=== PATIENT | female | born 1980 | race Caucasian/White ===

== ENCOUNTER 2020-02-08 14:44 | Emergency (ER) | payer OTHER, SELFPAY ==
[2020-02-08 14:51] VITALS: BP 125/76; PULSE 113; RESP 20; TEMP 37.1; O2SAT 99; BMI 24.1
--- NOTE | 2020-02-08 15:24 | XRR_ITS ---
PROCEDURE INFORMATION: Exam: XR Chest, 1 View Exam date and time: 02/08/2020 3:25 PM Age: 39 years old Clinical indication: Shortness of breath; Additional info: SOB TECHNIQUE: Imaging protocol: XR of the chest Views: 1 view. COMPARISON: No relevant prior studies available. FINDINGS: Lungs: Unremarkable. No consolidation. Pleural space: Unremarkable. No pleural effusion. No pneumothorax. Heart/Mediastinum: Unremarkable. No cardiomegaly. Vasculature: There are incidental benign calcified granulomas versus vessels seen en face at the perihilar regions. Bones/joints: Unremarkable. XR/XR chest 1V portable [id number] IMPRESSION: No evidence for acute cardiopulmonary disease.
--- NOTE | 2020-02-08 15:30 | ECG_ITS ---
[facility] Test Date: 2020-02-08 Pat Name: Anel Esparza Department: Room: Gender: Female Project Buyer: : [id number] Requested By: Majo Moon Order Number: [id number] Bianca MD: Lashanda Choudhary M.D. Measurements Intervals [place] Rate: 100 P: 69 MD: 137 QRS: 76 QRSD: 85 T: 49 QT: 343 QTc: 444 Interpretive Statements SINUS TACHYCARDIA POSSIBLE LEFT ATRIAL ENLARGEMENT [-0.1mV P WAVE IN V1/V2] ABNORMAL RHYTHM ECG No previous ECG available for comparison Electronically Signed On 02-08-2020 18:15:05 CDT by Lashanda Choudhary M.D. [id number]
--- NOTE | 2020-02-08 15:33 | W.ED.SOB ---
Documented by User: Majo Moon DAREN Lewis 02/08/20 16:49 HPI - SOB/Dyspnea General: Chief Complaint: Shortness of Breath/Dyspnea Stated Complaint: sob, cough Time Seen by Provider: 02/08/20 14:54 History of Present Illness: HPI Narrative: 39-year-old female patient presents to the emergency department with her spouse. 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 She reports past 1 to 2-week history of shortness of breath, worse with exertion. Reports iron deficiency anemia, states hemoglobin was 10 Sunday when checked by OB. She denies cough, denies fever or chills, denies ill contacts. She reports dizziness with shortness of breath, episodes have increased in frequency and last approximately 30 seconds to 1 minute. Improves with rest. She reports sharp pain in her chest. Denies bilateral lower extremity edema or unilateral swelling of the legs. Reports near syncopal episodes that have occurred several times, she reports has to put herself on the floor to prevent the falling feeling. She reports the room will shift, causing her to feel she is going to lose her balance. L 4 Miss AB 1 - 4th with twin - missd ab of 1 at 12 weeks Associated symptoms: Reports chest pain, lightheadedness and nausea (Past 1 to 2 weeks); Deny abdominal pain, chest congestion, diaphoresis, fever(s), hemoptysis, palpitations or vomiting Review of Systems General: Reports: 10 or more systems reviewed and unremarkable except in HPI and below Const: Denies: fever(s), chills or diaphoresis Eyes: Denies: blurry vision or eye redness ENMT: Denies: throat pain, dental pain or disequilibrium Card: Reports: chest pain, lightheadedness and dyspnea on exertion; Denies: palpitations, irregular heart rhythm, edema, swelling of feet/ankles or acrocyanosis Resp: Reports: dyspnea; Denies: productive cough, non-productive cough, wheezing, hemoptysis or chest congestion GI: Reports: nausea (Past 1 to 2 weeks); Denies: abdominal pain, vomiting, heartburn or GI cramping : Reports: other (31 weeks IUP, heart tones 141 bpm, strong and steady); Denies: difficulty voiding, dysuria, vaginal bleeding or vaginal discharge Musc: Denies: back pain Skin/Breast: Denies: rash or pruritus Neuro: Denies: headache(s), weakness in extremities or behavioral changes Zac/Lymph: Denies: easy bruising Physical Exam Const: COMMON NORMALS: no acute distress, patient oriented x3, healthy appearing and alert GENERAL APPEARANCE: cooperative, comfortable and well hydrated HENMT: COMMON NORMALS: normocephalic, external ears normal, TM's normal bilaterally, Normal external nose present and moist oral mucous membranes HEAD & SCALP: normocephalic NOSE: Normal external nose present EXTERNAL EAR: Yes external ears normal TYMPANIC MEMBRANE: TM's normal bilaterally MOUTH: Normal oral and palatal mucosa present THROAT: posterior oropharynx normal Eye: COMMON NORMALS: Equal, round and reactive pupils present and EOMs intact bilaterally GENERAL EYE: appearance normal, both eyes and all related structures PUPIL: Yes Equal, round and reactive pupils present, Yes pupil size - right Right pupil size (mm): 5 and Yes pupil size - left Left pupil size (mm): 5 Neck/C-Spine: COMMON NORMALS: full ROM, no lymphadenopathy and no meningeal signs GENERAL: Yes normal visual inspection and Yes trachea midline CERVICAL SPINE: Yes cervical ROM normal Lymph: LYMPHATIC: no lymphadenopathy noted Chest: COMMONS NORMALS: normal inspection of the chest Resp: COMMON NORMALS: normal respiratory effort and clear to auscultation bilaterally AUSCULTATION: clear to auscultation bilaterally Cardio: COMMON NORMALS: regular rhythm, S1 normal heart sound present and S2 normal heart sound present RHYTHM: regular rhythm HEART SOUNDS: S1 normal heart sound present and S2 normal heart sound present GI: COMMON NORMALS: Soft to palpation and non-tender INSPECTION: Yes normal to inspection PALPATION: Yes Soft to palpation : COMMON NORMALS: Yes no CVA tenderness BLADDER/KIDNEY EXAM: Yes no CVA tenderness Back/Pelvis: COMMON NORMALS: no CVA tenderness and thoracic and lumbar spine normal to inspection Extremity: COMMON NORMALS: normal to inspection and capillary refill normal Neuro: [place] COMA SCALE: document GCS findings [place] coma scale eye opening: Spontaneous [place] coma scale verbal response: Orientated [place] coma scale motor response: Obey commands [place] coma scale total score: 15 COMMON NORMALS: patient oriented x3, moves all extremities and no focal motor deficits SENSORIUM/ORIENTATION: Yes alert MENINGEAL SIGNS: Yes no meningeal signs COORDINATION/BALANCE: [id number] test normal SPEECH: speech normal GAIT: Yes Normal gait present MOTOR EXAM: 5/5 motor strength present throughout, Pronator motor function not present, no tremor noted, Normal motor muscle tone present throughout, No Motor abnormalities not present and No Pronator motor function present COORDINATION: [id number] test normal Psych: COMMON NORMALS: mental status grossly normal, Normal thought process present and cooperative ACTIVITY/MOTOR BEHAVIOR: Yes appropriate eye contact THOUGHT PROCESS: Normal thought process present Skin: COMMON NORMALS: no rashes or lesions noted and turgor normal GENERAL SKIN EXAM: no rashes or lesions noted and turgor normal Course ED course: Case discussed with Dr. Acosta, Labor and Delivery presented to the emergency department for 20-minute evaluation/stress test, no abnormal variation detected. Vital Signs: Vital signs: Vital Signs Temperature 97.6 F 02/09/20 10:21 Pulse Rate 78 02/09/20 10:21 Respiratory Rate 18 02/09/20 10:21 Blood Pressure 97/49 02/09/20 10:21 Pulse Oximetry 98 02/09/20 10:21 MDM - SOB/Dyspnea Lab Data: Labs: Lab Results 02/08/20 02/08/20 02/08/20 Range/Units 15:30 15:30 15:30 WBC 9.2 (4.0-10.0) 10^3/ uL RBC 4.01 L (4.1-5.3) 10^6/u L Hgb 11.4 L (11.5-15.3) g/dL Hct 36.6 L (37.0-47.0) % MCV 91.3 (81-99) fL MCH 28.4 (28.0-34.0) pg MCHC 31.1 (30.0-36.0) g/dL RDW 15.4 H (12.1-15.1) % Plt Count 300 (130-400) 10^3/c mm MPV 10.5 H (7.4-10.4) fL Neut % (Auto) 72.6 % Lymph % (Auto) 17.8 % [place] % (Auto) 7.5 % Eos % (Auto) 0.2 % Baso % (Auto) 0.4 % Neut # (Auto) 6.70 (1.8-7.7) 10^3/u L Lymph # (Auto) 1.6 (0.8-4.8) 10^3/u L [place] # (Auto) 0.7 (0.2-0.9) 10^3/u L Eos # (Auto) 0.0 (0.0-0.8) 10^3/u L Baso # (Auto) 0.0 (0.0-0.1) 10^3/u L Nucleated RBC % (a uto) 0 % Nucleated RBCs # 0.0 /100WBC D-Dimer 0.63 H (0-0.59) ug/mIFE U Sodium 134 L (136-145) mmol/L Potassium 3.8 (3.5-5.1) mmol/L Chloride 105 (98-107) mmol/L Carbon Dioxide 21 L (22-29) mmol/L Anion Gap 11.8 (5-19) BUN 7 (6-20) mg/dL Creatinine 0.4 L (0.5-0.9) mg/dL GFR Calculation 175.9 H (90-130) mL/min Glucose 82 (65-115) mg/dL Calculated Osmolal ity 273 L (285-295) mOsm/k g Calcium 8.9 (8.5-10.5) mg/dL Total Bilirubin 0.3 (0.15-1.2) mg/dL AST 25 (0-32) U/L ALT 10 (0-33) U/L Alkaline Phosphata se 70 (35-105) IU/L Troponin T Baselin e (0-10) ng/L Troponin T 120 Min [place] (0-10) ng/L Delta Troponin T (0-10) ABS# Troponin T Hi Sens 6Hr (0-10) ng/L Troponin T Hi Sens 6Hr Delta (0-12) ng/L NT-Pro-B Natriuret Pep (0-125) pg/mL Total Protein 6.7 (6.6-8.7) g/dL Albumin 3.4 L (3.5-5.2) g/dL Globulin 3.3 (1.3-4.6) g/dL Urine Color (Yellow) Urine Appearance (CLEAR) Urine pH (5-7) Ur Specific Gravit y (1.005-1.030) Urine Protein (Negative) Urine Glucose (UA) (Normal) Urine Ketones (Negative) Urine Blood (Negative) Urine Nitrate (Negative) Urine Bilirubin (NEGATIVE) Prot Sulfosalicyli c Acd (Negative) Urine Urobilinogen (Negative) mg/dL Ur Leukocyte Jeana ase (Negative) 02/08/20 02/08/20 02/08/20 Range/Units 15:30 16:03 19:46 WBC (4.0-10.0) 10^3/ uL RBC (4.1-5.3) 10^6/u L Hgb (11.5-15.3) g/dL Hct (37.0-47.0) % MCV (81-99) fL MCH (28.0-34.0) pg MCHC (30.0-36.0) g/dL RDW (12.1-15.1) % Plt Count (130-400) 10^3/c mm MPV (7.4-10.4) fL Neut % (Auto) % Lymph % (Auto) % [place] % (Auto) % Eos % (Auto) % Baso % (Auto) % Neut # (Auto) (1.8-7.7) 10^3/u L Lymph # (Auto) (0.8-4.8) 10^3/u L [place] # (Auto) (0.2-0.9) 10^3/u L Eos # (Auto) (0.0-0.8) 10^3/u L Baso # (Auto) (0.0-0.1) 10^3/u L Nucleated RBC % (a uto) % Nucleated RBCs # /100WBC D-Dimer (0-0.59) ug/mIFE U Sodium (136-145) mmol/L Potassium (3.5-5.1) mmol/L Chloride (98-107) mmol/L Carbon Dioxide (22-29) mmol/L Anion Gap (5-19) BUN (6-20) mg/dL Creatinine (0.5-0.9) mg/dL GFR Calculation (90-130) mL/min Glucose (65-115) mg/dL Calculated Osmolal ity (285-295) mOsm/k g Calcium (8.5-10.5) mg/dL Total Bilirubin (0.15-1.2) mg/dL AST (0-32) U/L ALT (0-33) U/L Alkaline Phosphata se (35-105) IU/L Troponin T Baselin e 6 (0-10) ng/L Troponin T 120 Min [place] (0-10) ng/L Delta Troponin T (0-10) ABS# Troponin T Hi Sens 6Hr (0-10) ng/L Troponin T Hi Sens 6Hr Delta (0-12) ng/L NT-Pro-B Natriuret Pep 50 (0-125) pg/mL Total Protein (6.6-8.7) g/dL Albumin (3.5-5.2) g/dL Globulin (1.3-4.6) g/dL Urine Color Straw (Yellow) Urine Appearance Clear (CLEAR) Urine pH 8 H (5-7) Ur Specific Gravit y 1.015 (1.005-1.030) Urine Protein Neg (Negative) Urine Glucose (UA) Norm (Normal) Urine Ketones Negative (Negative) Urine Blood Neg (Negative) Urine Nitrate Negative (Negative) Urine Bilirubin Neg (NEGATIVE) Prot Sulfosalicyli c Acd Negative (Negative) Urine Urobilinogen Norm (Negative) mg/dL Ur Leukocyte Jeana ase Negative (Negative) 02/08/20 02/09/20 Range/Units 21:28 01:25 WBC (4.0-10.0) 10^3/ uL RBC (4.1-5.3) 10^6/u L Hgb (11.5-15.3) g/dL Hct (37.0-47.0) % MCV (81-99) fL MCH (28.0-34.0) pg MCHC (30.0-36.0) g/dL RDW (12.1-15.1) % Plt Count (130-400) 10^3/c mm MPV (7.4-10.4) fL Neut % (Auto) % Lymph % (Auto) % [place] % (Auto) % Eos % (Auto) % Baso % (Auto) % Neut # (Auto) (1.8-7.7) 10^3/u L Lymph # (Auto) (0.8-4.8) 10^3/u L [place] # (Auto) (0.2-0.9) 10^3/u L Eos # (Auto) (0.0-0.8) 10^3/u L Baso # (Auto) (0.0-0.1) 10^3/u L Nucleated RBC % (a uto) % Nucleated RBCs # /100WBC D-Dimer (0-0.59) ug/mIFE U Sodium (136-145) mmol/L Potassium (3.5-5.1) mmol/L Chloride (98-107) mmol/L Carbon Dioxide (22-29) mmol/L Anion Gap (5-19) BUN (6-20) mg/dL Creatinine (0.5-0.9) mg/dL GFR Calculation (90-130) mL/min Glucose (65-115) mg/dL Calculated Osmolal ity (285-295) mOsm/k g Calcium (8.5-10.5) mg/dL Total Bilirubin (0.15-1.2) mg/dL AST (0-32) U/L ALT (0-33) U/L Alkaline Phosphata se (35-105) IU/L Troponin T Baselin e (0-10) ng/L Troponin T 120 Min [place] 6.00 (0-10) ng/L Delta Troponin T 0 (0-10) ABS# Troponin T Hi Sens 6Hr 6.00 (0-10) ng/L Troponin T Hi Sens 6Hr Delta 0 (0-12) ng/L NT-Pro-B Natriuret Pep (0-125) pg/mL Total Protein (6.6-8.7) g/dL Albumin (3.5-5.2) g/dL Globulin (1.3-4.6) g/dL Urine Color (Yellow) Urine Appearance (CLEAR) Urine pH (5-7) Ur Specific Gravit y (1.005-1.030) Urine Protein (Negative) Urine Glucose (UA) (Normal) Urine Ketones (Negative) Urine Blood (Negative) Urine Nitrate (Negative) Urine Bilirubin (NEGATIVE) Prot Sulfosalicyli c Acd (Negative) Urine Urobilinogen (Negative) mg/dL Ur Leukocyte Jeana ase (Negative) Imaging Data^: CXR: Attestation: I personally reviewed and interpreted this imaging study as follows: Radiologist's impression: No acute disease EKG Data^: EKG 1: EKG Interpretation Date: 02/08/20 EKG interpretation time: 15:47 Prior EKG tracings: not available for review Computer Generated Interpretation: Sinus tachycardia, possible left atrial enlargement, abnormal rhythm EKG Discharge Plan Discharge Patient Disposition: Xfer Short-Term Hosp Clinical Impression: Tachycardia, SVT (supraventricular tachycardia) Condition: Stable Discharge Orders: Transfer Out of Facility (Order); Ordered 02/08/20 Ordered By: Nola Acosta Referrals: Courtney Hope FNP [Primary Care Provider] - Discharge Date/Time: 02/09/20 10:25 Sign Out Sign Out Data: Patient Sign Out occurred on 02/08/20 at 17:20. Patient's care was discussed, and care was transferred from DAREN Galvan to JANICE Cain. Sign Out Comment: pending V/Q scan Last updated by Majo Lewis ARNP at 02/08/20 17:11 Patient Sign Out occurred on 02/08/20 at 18:55. Patient's care was discussed, and care was transferred from to Nola Acosta MD, [facility] [place]. Coding Level of Care Code ED Investigator Welfare for Chg Fwd Exam Comprehensive Documented by User: JANICE Cain 02/08/20 18:55 HPI - SOB/Dyspnea General: Chief Complaint: Shortness of Breath/Dyspnea Stated Complaint: sob, cough Time Seen by Provider: 02/08/20 14:54 Course Vital Signs: Vital signs: Vital Signs Temperature 97.6 F 02/09/20 10:21 Pulse Rate 78 02/09/20 10:21 Respiratory Rate 18 02/09/20 10:21 Blood Pressure 97/49 02/09/20 10:21 Pulse Oximetry 98 02/09/20 10:21 MDM - SOB/Dyspnea MDM Narrative: Medical decision making narrative: I took over patient for Majo Lewis NP at 5 PM. Patient was waiting on doing V/Q perfusion scan. While waiting on the perfusion scan patient went into SVT and Dr. Acosta will now be taking over care of patient. Patient was signed off to Dr. Acosta. Lab Data: Labs: Lab Results 02/08/20 02/08/20 02/08/20 Range/Units 15:30 15:30 15:30 WBC 9.2 (4.0-10.0) 10^3/ uL RBC 4.01 L (4.1-5.3) 10^6/u L Hgb 11.4 L (11.5-15.3) g/dL Hct 36.6 L (37.0-47.0) % MCV 91.3 (81-99) fL MCH 28.4 (28.0-34.0) pg MCHC 31.1 (30.0-36.0) g/dL RDW 15.4 H (12.1-15.1) % Plt Count 300 (130-400) 10^3/c mm MPV 10.5 H (7.4-10.4) fL Neut % (Auto) 72.6 % Lymph % (Auto) 17.8 % [place] % (Auto) 7.5 % Eos % (Auto) 0.2 % Baso % (Auto) 0.4 % Neut # (Auto) 6.70 (1.8-7.7) 10^3/u L Lymph # (Auto) 1.6 (0.8-4.8) 10^3/u L [place] # (Auto) 0.7 (0.2-0.9) 10^3/u L Eos # (Auto) 0.0 (0.0-0.8) 10^3/u L Baso # (Auto) 0.0 (0.0-0.1) 10^3/u L Nucleated RBC % (a uto) 0 % Nucleated RBCs # 0.0 /100WBC D-Dimer 0.63 H (0-0.59) ug/mIFE U Sodium 134 L (136-145) mmol/L Potassium 3.8 (3.5-5.1) mmol/L Chloride 105 (98-107) mmol/L Carbon Dioxide 21 L (22-29) mmol/L Anion Gap 11.8 (5-19) BUN 7 (6-20) mg/dL Creatinine 0.4 L (0.5-0.9) mg/dL GFR Calculation 175.9 H (90-130) mL/min Glucose 82 (65-115) mg/dL Calculated Osmolal ity 273 L (285-295) mOsm/k g Calcium 8.9 (8.5-10.5) mg/dL Total Bilirubin 0.3 (0.15-1.2) mg/dL AST 25 (0-32) U/L ALT 10 (0-33) U/L Alkaline Phosphata se 70 (35-105) IU/L Troponin T Baselin e (0-10) ng/L Troponin T 120 Min [place] (0-10) ng/L Delta Troponin T (0-10) ABS# Troponin T Hi Sens 6Hr (0-10) ng/L Troponin T Hi Sens 6Hr Delta (0-12) ng/L NT-Pro-B Natriuret Pep (0-125) pg/mL Total Protein 6.7 (6.6-8.7) g/dL Albumin 3.4 L (3.5-5.2) g/dL Globulin 3.3 (1.3-4.6) g/dL Urine Color (Yellow) Urine Appearance (CLEAR) Urine pH (5-7) Ur Specific Gravit y (1.005-1.030) Urine Protein (Negative) Urine Glucose (UA) (Normal) Urine Ketones (Negative) Urine Blood (Negative) Urine Nitrate (Negative) Urine Bilirubin (NEGATIVE) Prot Sulfosalicyli c Acd (Negative) Urine Urobilinogen (Negative) mg/dL Ur Leukocyte Jeana ase (Negative) 02/08/20 02/08/20 02/08/20 Range/Units 15:30 16:03 19:46 WBC (4.0-10.0) 10^3/ uL RBC (4.1-5.3) 10^6/u L Hgb (11.5-15.3) g/dL Hct (37.0-47.0) % MCV (81-99) fL MCH (28.0-34.0) pg MCHC (30.0-36.0) g/dL RDW (12.1-15.1) % Plt Count (130-400) 10^3/c mm MPV (7.4-10.4) fL Neut % (Auto) % Lymph % (Auto) % [place] % (Auto) % Eos % (Auto) % Baso % (Auto) % Neut # (Auto) (1.8-7.7) 10^3/u L Lymph # (Auto) (0.8-4.8) 10^3/u L [place] # (Auto) (0.2-0.9) 10^3/u L Eos # (Auto) (0.0-0.8) 10^3/u L Baso # (Auto) (0.0-0.1) 10^3/u L Nucleated RBC % (a uto) % Nucleated RBCs # /100WBC D-Dimer (0-0.59) ug/mIFE U Sodium (136-145) mmol/L Potassium (3.5-5.1) mmol/L Chloride (98-107) mmol/L Carbon Dioxide (22-29) mmol/L Anion Gap (5-19) BUN (6-20) mg/dL Creatinine (0.5-0.9) mg/dL GFR Calculation (90-130) mL/min Glucose (65-115) mg/dL Calculated Osmolal ity (285-295) mOsm/k g Calcium (8.5-10.5) mg/dL Total Bilirubin (0.15-1.2) mg/dL AST (0-32) U/L ALT (0-33) U/L Alkaline Phosphata se (35-105) IU/L Troponin T Baselin e 6 (0-10) ng/L Troponin T 120 Min [place] (0-10) ng/L Delta Troponin T (0-10) ABS# Troponin T Hi Sens 6Hr (0-10) ng/L Troponin T Hi Sens 6Hr Delta (0-12) ng/L NT-Pro-B Natriuret Pep 50 (0-125) pg/mL Total Protein (6.6-8.7) g/dL Albumin (3.5-5.2) g/dL Globulin (1.3-4.6) g/dL Urine Color Straw (Yellow) Urine Appearance Clear (CLEAR) Urine pH 8 H (5-7) Ur Specific Gravit y 1.015 (1.005-1.030) Urine Protein Neg (Negative) Urine Glucose (UA) Norm (Normal) Urine Ketones Negative (Negative) Urine Blood Neg (Negative) Urine Nitrate Negative (Negative) Urine Bilirubin Neg (NEGATIVE) Prot Sulfosalicyli c Acd Negative (Negative) Urine Urobilinogen Norm (Negative) mg/dL Ur Leukocyte Jeana ase Negative (Negative) 02/08/20 02/09/20 Range/Units 21:28 01:25 WBC (4.0-10.0) 10^3/ uL RBC (4.1-5.3) 10^6/u L Hgb (11.5-15.3) g/dL Hct (37.0-47.0) % MCV (81-99) fL MCH (28.0-34.0) pg MCHC (30.0-36.0) g/dL RDW (12.1-15.1) % Plt Count (130-400) 10^3/c mm MPV (7.4-10.4) fL Neut % (Auto) % Lymph % (Auto) % [place] % (Auto) % Eos % (Auto) % Baso % (Auto) % Neut # (Auto) (1.8-7.7) 10^3/u L Lymph # (Auto) (0.8-4.8) 10^3/u L [place] # (Auto) (0.2-0.9) 10^3/u L Eos # (Auto) (0.0-0.8) 10^3/u L Baso # (Auto) (0.0-0.1) 10^3/u L Nucleated RBC % (a uto) % Nucleated RBCs # /100WBC D-Dimer (0-0.59) ug/mIFE U Sodium (136-145) mmol/L Potassium (3.5-5.1) mmol/L Chloride (98-107) mmol/L Carbon Dioxide (22-29) mmol/L Anion Gap (5-19) BUN (6-20) mg/dL Creatinine (0.5-0.9) mg/dL GFR Calculation (90-130) mL/min Glucose (65-115) mg/dL Calculated Osmolal ity (285-295) mOsm/k g Calcium (8.5-10.5) mg/dL Total Bilirubin (0.15-1.2) mg/dL AST (0-32) U/L ALT (0-33) U/L Alkaline Phosphata se (35-105) IU/L Troponin T Baselin e (0-10) ng/L Troponin T 120 Min [place] 6.00 (0-10) ng/L Delta Troponin T 0 (0-10) ABS# Troponin T Hi Sens 6Hr 6.00 (0-10) ng/L Troponin T Hi Sens 6Hr Delta 0 (0-12) ng/L NT-Pro-B Natriuret Pep (0-125) pg/mL Total Protein (6.6-8.7) g/dL Albumin (3.5-5.2) g/dL Globulin (1.3-4.6) g/dL Urine Color (Yellow) Urine Appearance (CLEAR) Urine pH (5-7) Ur Specific Gravit y (1.005-1.030) Urine Protein (Negative) Urine Glucose (UA) (Normal) Urine Ketones (Negative) Urine Blood (Negative) Urine Nitrate (Negative) Urine Bilirubin (NEGATIVE) Prot Sulfosalicyli c Acd (Negative) Urine Urobilinogen (Negative) mg/dL Ur Leukocyte Jeana ase (Negative) Discharge Plan Discharge Patient Disposition: Xfer Short-Term Hosp Clinical Impression: Tachycardia, SVT (supraventricular tachycardia) Condition: Stable Discharge Orders: Transfer Out of Facility (Order); Ordered 02/08/20 Ordered By: Nola Acosta Referrals: Courtney Hope FNP [Primary Care Provider] - Discharge Date/Time: 02/09/20 10:25 Sign Out Sign Out Data: Patient Sign Out occurred on 02/08/20 at 17:20. Patient's care was discussed, and care was transferred from DAREN Galvan to JANICE Cain. Sign Out Comment: pending V/Q scan Last updated by Majo Lewis ARNP at 02/08/20 17:11 Patient Sign Out occurred on 02/08/20 at 18:55. Patient's care was discussed, and care was transferred from to Nola Acosta MD, [facility] [place]. Coding Level of Care Code ED Investigator Welfare for Chg Fwd Exam Comprehensive Documented by User: Nola Acosta MD, [facility] [place] 02/09/20 15:11 HPI - SOB/Dyspnea General: Chief Complaint: Shortness of Breath/Dyspnea Stated Complaint: sob, cough Time Seen by Provider: 02/08/20 14:54 Course Vital Signs: Vital signs: Vital Signs Temperature 97.6 F 02/09/20 10:21 Pulse Rate 78 02/09/20 10:21 Respiratory Rate 18 02/09/20 10:21 Blood Pressure 97/49 02/09/20 10:21 Pulse Oximetry 98 02/09/20 10:21 MDM - SOB/Dyspnea MDM Narrative: Medical decision making narrative: This patient was initially seen by Majo Lewis, nurse practitioner and she signed it over to Navdeep Carney, when she left Lab Data: Labs: Lab Results 02/08/20 02/08/20 02/08/20 Range/Units 15:30 15:30 15:30 WBC 9.2 (4.0-10.0) 10^3/ uL RBC 4.01 L (4.1-5.3) 10^6/u L Hgb 11.4 L (11.5-15.3) g/dL Hct 36.6 L (37.0-47.0) % MCV 91.3 (81-99) fL MCH 28.4 (28.0-34.0) pg MCHC 31.1 (30.0-36.0) g/dL RDW 15.4 H (12.1-15.1) % Plt Count 300 (130-400) 10^3/c mm MPV 10.5 H (7.4-10.4) fL Neut % (Auto) 72.6 % Lymph % (Auto) 17.8 % [place] % (Auto) 7.5 % Eos % (Auto) 0.2 % Baso % (Auto) 0.4 % Neut # (Auto) 6.70 (1.8-7.7) 10^3/u L Lymph # (Auto) 1.6 (0.8-4.8) 10^3/u L [place] # (Auto) 0.7 (0.2-0.9) 10^3/u L Eos # (Auto) 0.0 (0.0-0.8) 10^3/u L Baso # (Auto) 0.0 (0.0-0.1) 10^3/u L Nucleated RBC % (a uto) 0 % Nucleated RBCs # 0.0 /100WBC D-Dimer 0.63 H (0-0.59) ug/mIFE U Sodium 134 L (136-145) mmol/L Potassium 3.8 (3.5-5.1) mmol/L Chloride 105 (98-107) mmol/L Carbon Dioxide 21 L (22-29) mmol/L Anion Gap 11.8 (5-19) BUN 7 (6-20) mg/dL Creatinine 0.4 L (0.5-0.9) mg/dL GFR Calculation 175.9 H (90-130) mL/min Glucose 82 (65-115) mg/dL Calculated Osmolal ity 273 L (285-295) mOsm/k g Calcium 8.9 (8.5-10.5) mg/dL Total Bilirubin 0.3 (0.15-1.2) mg/dL AST 25 (0-32) U/L ALT 10 (0-33) U/L Alkaline Phosphata se 70 (35-105) IU/L Troponin T Baselin e (0-10) ng/L Troponin T 120 Min [place] (0-10) ng/L Delta Troponin T (0-10) ABS# Troponin T Hi Sens 6Hr (0-10) ng/L Troponin T Hi Sens 6Hr Delta (0-12) ng/L NT-Pro-B Natriuret Pep (0-125) pg/mL Total Protein 6.7 (6.6-8.7) g/dL Albumin 3.4 L (3.5-5.2) g/dL Globulin 3.3 (1.3-4.6) g/dL Urine Color (Yellow) Urine Appearance (CLEAR) Urine pH (5-7) Ur Specific Gravit y (1.005-1.030) Urine Protein (Negative) Urine Glucose (UA) (Normal) Urine Ketones (Negative) Urine Blood (Negative) Urine Nitrate (Negative) Urine Bilirubin (NEGATIVE) Prot Sulfosalicyli c Acd (Negative) Urine Urobilinogen (Negative) mg/dL Ur Leukocyte Jeana ase (Negative) 02/08/20 02/08/20 02/08/20 Range/Units 15:30 16:03 19:46 WBC (4.0-10.0) 10^3/ uL RBC (4.1-5.3) 10^6/u L Hgb (11.5-15.3) g/dL Hct (37.0-47.0) % MCV (81-99) fL MCH (28.0-34.0) pg MCHC (30.0-36.0) g/dL RDW (12.1-15.1) % Plt Count (130-400) 10^3/c mm MPV (7.4-10.4) fL Neut % (Auto) % Lymph % (Auto) % [place] % (Auto) % Eos % (Auto) % Baso % (Auto) % Neut # (Auto) (1.8-7.7) 10^3/u L Lymph # (Auto) (0.8-4.8) 10^3/u L [place] # (Auto) (0.2-0.9) 10^3/u L Eos # (Auto) (0.0-0.8) 10^3/u L Baso # (Auto) (0.0-0.1) 10^3/u L Nucleated RBC % (a uto) % Nucleated RBCs # /100WBC D-Dimer (0-0.59) ug/mIFE U Sodium (136-145) mmol/L Potassium (3.5-5.1) mmol/L Chloride (98-107) mmol/L Carbon Dioxide (22-29) mmol/L Anion Gap (5-19) BUN (6-20) mg/dL Creatinine (0.5-0.9) mg/dL GFR Calculation (90-130) mL/min Glucose (65-115) mg/dL Calculated Osmolal ity (285-295) mOsm/k g Calcium (8.5-10.5) mg/dL Total Bilirubin (0.15-1.2) mg/dL AST (0-32) U/L ALT (0-33) U/L Alkaline Phosphata se (35-105) IU/L Troponin T Baselin e 6 (0-10) ng/L Troponin T 120 Min [place] (0-10) ng/L Delta Troponin T (0-10) ABS# Troponin T Hi Sens 6Hr (0-10) ng/L Troponin T Hi Sens 6Hr Delta (0-12) ng/L NT-Pro-B Natriuret Pep 50 (0-125) pg/mL Total Protein (6.6-8.7) g/dL Albumin (3.5-5.2) g/dL Globulin (1.3-4.6) g/dL Urine Color Straw (Yellow) Urine Appearance Clear (CLEAR) Urine pH 8 H (5-7) Ur Specific Gravit y 1.015 (1.005-1.030) Urine Protein Neg (Negative) Urine Glucose (UA) Norm (Normal) Urine Ketones Negative (Negative) Urine Blood Neg (Negative) Urine Nitrate Negative (Negative) Urine Bilirubin Neg (NEGATIVE) Prot Sulfosalicyli c Acd Negative (Negative) Urine Urobilinogen Norm (Negative) mg/dL Ur Leukocyte Jeana ase Negative (Negative) 02/08/20 02/09/20 Range/Units 21:28 01:25 WBC (4.0-10.0) 10^3/ uL RBC (4.1-5.3) 10^6/u L Hgb (11.5-15.3) g/dL Hct (37.0-47.0) % MCV (81-99) fL MCH (28.0-34.0) pg MCHC (30.0-36.0) g/dL RDW (12.1-15.1) % Plt Count (130-400) 10^3/c mm MPV (7.4-10.4) fL Neut % (Auto) % Lymph % (Auto) % [place] % (Auto) % Eos % (Auto) % Baso % (Auto) % Neut # (Auto) (1.8-7.7) 10^3/u L Lymph # (Auto) (0.8-4.8) 10^3/u L [place] # (Auto) (0.2-0.9) 10^3/u L Eos # (Auto) (0.0-0.8) 10^3/u L Baso # (Auto) (0.0-0.1) 10^3/u L Nucleated RBC % (a uto) % Nucleated RBCs # /100WBC D-Dimer (0-0.59) ug/mIFE U Sodium (136-145) mmol/L Potassium (3.5-5.1) mmol/L Chloride (98-107) mmol/L Carbon Dioxide (22-29) mmol/L Anion Gap (5-19) BUN (6-20) mg/dL Creatinine (0.5-0.9) mg/dL GFR Calculation (90-130) mL/min Glucose (65-115) mg/dL Calculated Osmolal ity (285-295) mOsm/k g Calcium (8.5-10.5) mg/dL Total Bilirubin (0.15-1.2) mg/dL AST (0-32) U/L ALT (0-33) U/L Alkaline Phosphata se (35-105) IU/L Troponin T Baselin e (0-10) ng/L Troponin T 120 Min [place] 6.00 (0-10) ng/L Delta Troponin T 0 (0-10) ABS# Troponin T Hi Sens 6Hr 6.00 (0-10) ng/L Troponin T Hi Sens 6Hr Delta 0 (0-12) ng/L NT-Pro-B Natriuret Pep (0-125) pg/mL Total Protein (6.6-8.7) g/dL Albumin (3.5-5.2) g/dL Globulin (1.3-4.6) g/dL Urine Color (Yellow) Urine Appearance (CLEAR) Urine pH (5-7) Ur Specific Gravit y (1.005-1.030) Urine Protein (Negative) Urine Glucose (UA) (Normal) Urine Ketones (Negative) Urine Blood (Negative) Urine Nitrate (Negative) Urine Bilirubin (NEGATIVE) Prot Sulfosalicyli c Acd (Negative) Urine Urobilinogen (Negative) mg/dL Ur Leukocyte Jeana ase (Negative) Discharge Plan Discharge Patient Disposition: Xfer Short-Term Hosp Clinical Impression: Tachycardia, SVT (supraventricular tachycardia) Condition: Stable Discharge Orders: Transfer Out of Facility (Order); Ordered 02/08/20 Ordered By: Nola Acosta Referrals: Courtney Hope EXTENDED INSURANCE CLERK [Primary Care Provider] - Discharge Date/Time: 02/09/20 10:25 Sign Out Sign Out Data: Patient Sign Out occurred on 02/08/20 at 17:20. Patient's care was discussed, and care was transferred from DAREN Galvan to JANICE Cain. Sign Out Comment: pending V/Q scan Last updated by Majo Lewis ARNP at 02/08/20 17:11 Patient Sign Out occurred on 02/08/20 at 18:55. Patient's care was discussed, and care was transferred from to Nola Acosta MD, [facility] [place]. Coding Level of Care Code ED Investigator Welfare for Chg Fwd Exam Comprehensive
[2020-02-08 15:44] LABS: Basophils % 0.4 %; Eosinophils % 0.2 %; Hematocrit 36.6 % (37.0-47.0); Hemoglobin 11.4 g/dL (11.5-15.3); Lymphocytes # 1.6 10^3/uL (0.8-4.8); Lymphocytes % 17.8 %; Mean Corpuscular HGB Conc 31.1 g/dL (30.0-36.0); Mean Corpuscular Hemoglobin 28.4 pg (28.0-34.0); Mean Corpuscular Volume 91.3 fL (81-99); Mean Platelet Volume 10.5 fL (7.4-10.4); Monocytes # 0.7 10^3/uL (0.2-0.9); Monocytes % 7.5 %; Neutrophils % 72.6 %; Nucleated Red Blood Cells % 0 %; Platelet Count 300 10^3/cmm (130-400); Red Blood Count 4.01 10^6/uL (4.1-5.3); Red Cell Distribution Width 15.4 % (12.1-15.1); White Blood Count 9.2 10^3/uL (4.0-10.0)
[2020-02-08 16:00] LABS: D Dimer 0.63 ug/mIFEU (0-0.59)
[2020-02-08 16:07] LABS: Alanine Aminotransferase 10 U/L (0-33); Albumin Level 3.4 g/dL (3.5-5.2); Alkaline Phosphatase 70 IU/L (35-105); Anion Gap 11.8 (5-19); Aspartate Amino Transferase 25 U/L (0-32); Blood Urea Nitrogen 7 mg/dL (6-20); Calcium 8.9 mg/dL (8.5-10.5); Carbon Dioxide 21 mmol/L (22-29); Chloride 105 mmol/L (98-107); Globulin 3.3 g/dL (1.3-4.6); Glomerular Filtration Rate 175.9 mL/min (90-130); Glucose 82 mg/dL (65-115); Osmolality Calculated 273 mOsm/kg (285-295); Potassium 3.8 mmol/L (3.5-5.1); Sodium 134 mmol/L (136-145); Total Bilirubin 0.3 mg/dL (0.15-1.2); Total Protein 6.7 g/dL (6.6-8.7)
--- NOTE | 2020-02-08 16:10 | PC.NURSE ---
External monitoring initiated at this time. U/s and toco placed, abdomen noted to be soft and pt denies feeling contractions or abd tightening, but just occasional jeet yatse but nothing regular . Monitoring explained at this time, pt and verbalized understanding.
--- NOTE | 2020-02-08 16:18 | PC.NURSE ---
FHT 141
[2020-02-08 16:22] VITALS: BP 113/64; BP 119/67; BP 124/83; PULSE 108; PULSE 118
[2020-02-08 16:30] LABS: Add Urine Microscopic? NO
[2020-02-08 16:34] LABS: Bilirubin Urine Neg (NEGATIVE); Blood Urine Neg (Negative); Glucose Urine UA Norm (Normal); Ketones Urine Negative (Negative); Leukocyte Esterase Urine Negative (Negative); Nitrate Urine Negative (Negative); Protein Urine Neg (Negative); Specific Gravity, Urine 1.015 (1.005-1.030); Sulfosalicylic Acid Urine Negative (Negative); Urine Appearance Clear (CLEAR); Urine Color Straw (Yellow); Urobilinogen Urine Norm (Negative); pH Urine 8 (5-7)
--- NOTE | 2020-02-08 16:39 | PC.NURSE ---
One contraction noted during 29min tracing lasting 80sec. Pt noted to have felt it but abdomen was noted to be soft per palpation.
[2020-02-08 17:01] LABS: NT Pro B Type Natriuretic Pept 50 pg/mL (0-125)
--- NOTE | 2020-02-08 18:06 | PC.NURSE ---
OB MONITORING MOVEMENT
[2020-02-08] MEDS: sodium chloride 0.9% 1,000 ML 999 ML IV ×2 (18:08→19:22)
[2020-02-08] MEDS: adenosine 3 mg/mL SDV 2mL 6 MG IVP (19:03)
[2020-02-08] MEDS: ondansetron 2 mg/ML SDV 2 mL 4 MG IVP (19:05)
--- NOTE | 2020-02-08 19:10 | CTR_ITS ---
PROCEDURE INFORMATION: Exam: CT Angiography Chest With Contrast Exam date and time: 02/08/2020 7:34 PM Age: 39 years old Clinical indication: Shortness of breath; Patient HX: SOB, tachy, cp 31 wks preg; Additional info: SOB, tachycardia TECHNIQUE: Imaging protocol: Computed tomographic angiography of the chest with intravenous contrast. Sagittal and coronal reformatted images were created and reviewed. 3D rendering: MIP and/or 3D reconstructed images were created by the technologist. Radiation optimization: All CT scans at this facility use at least one of these dose optimization techniques: automated exposure control; mA and/or kV adjustment per patient size (includes targeted exams where dose is matched to clinical indication); or iterative reconstruction. Contrast material: VISI 320; Contrast volume: 75 ml; Contrast route: INTRAVENOUS (IV); COMPARISON: CR (CHEST, ) 02/08/2020 4:01 PM RADIATION DOSE METRICS: Total DLP (mGy-cm): 483.94 FINDINGS: Pulmonary arteries: No filling defects in the pulmonary arteries to suggest pulmonary embolism. Aorta: No evidence for aortic aneurysm or aortic dissection. Lungs: Tracheobronchial structures are patent. Calcified granuloma in the right upper lobe. Noncalcified nodule in the right lower lobe with an average measurement of 2 mm (series 3, image 41). Pleural space: No pneumothorax. No pleural effusion. Heart: The heart is unremarkable. No cardiomegaly. No pericardial effusion. Mediastinal space: The esophagus is unremarkable. No mediastinal hematoma. No pneumomediastinum. Lymph nodes: No lymphadenopathy. Calcified lymph nodes in the right hilum. Liver: Multiple small areas of hyper enhancement in the visualized liver, the largest has imaging characteristics suggestive of a hemangioma. This measures 1.2 x 1.6 cm (series 2, image 381). Smaller foci in the visualized liver may represent small hemangiomas versus areas of arteriovenous shunting, these too small to characterize however. Gallbladder and bile ducts: The gallbladder is unremarkable. No biliary ductal dilatation. Pancreas: The visualized pancreas is unremarkable. No pancreatic ductal dilatation. Spleen: The spleen is unremarkable. Adrenals: The right and left adrenal glands are unremarkable. Kidneys and ureters: The visualized right and left kidneys are unremarkable. Bones/joints: No acute fracture. Soft tissues: The extrathoracic soft tissues are unremarkable. CT/CT angio chest PE protcl [id number] IMPRESSION: 1. No evidence for pulmonary embolism. 2. Noncalcified nodule in the right lower lobe with an average measurement of 2 mm. For patients at low risk (minimal or absent history of smoking and of other known risk factors), no routine follow-up is indicated. For patients at high risk (history of smoking or of other known risk factors), consider optional CT at 12 months. (Niya et al., Fleischner Society, 2017) 3. Multiple small areas of hyper enhancement in the visualized liver, the largest has imaging characteristics suggestive of a hemangioma. Smaller foci in the visualized liver may represent small hemangiomas versus areas of arteriovenous shunting, these too small to characterize however. In a low-risk patient, findings are most likely to be benign and no further follow-up is recommended. In a high-risk patient, recommend follow-up MRI in 3-6 months (or earlier if warranted by the patient's specific clinical circumstances). 4. Incidental/nonacute findings are listed in the report. Radiation Dose CTDIVOL = (mGy): DLP = 483.94 (mGy-cm)
--- NOTE | 2020-02-08 19:34 | ECG_ITS ---
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 Measurements Intervals [place] Rate: 148 P: 73 SC: 115 QRS: 83 QRSD: 84 T: 65 QT: 325 QTc: 510 Interpretive Statements SINUS TACHYCARDIA WITH SHORT SC INTERVAL, POSSIBLE ATRIAL FLUTTER NONSPECIFIC ST & T-WAVE ABNORMALITY ABNORMAL RHYTHM ECG Compared to ECG 02/08/2020 15:46:50 T-wave abnormality now present Electronically Signed On 02-09-2020 18:57:48 CDT by Lashanda Choudhary M.D. [email or web address] [id number] f
[2020-02-08 20:09] LABS: Troponin(5th) Baseline 6 ng/L (0-10)
[2020-02-08] MEDS: iodixanol 320 mg/mL 100mL Btl IV (20:36)
--- NOTE | 2020-02-08 21:34 | ECG_ITS ---
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 Measurements Intervals [place] Rate: 95 P: 39 IN: 126 QRS: 66 QRSD: 86 T: 40 QT: 376 QTc: 473 Interpretive Statements SINUS RHYTHM Compared to ECG 02/08/2020 15:46:50 Sinus tachycardia no longer present Electronically Signed On 02-09-2020 19:00:01 CDT by Lashanda Choudhary M.D. [email or web address] hospitalPowerCardmemorial health system marietta memorial hospitalYour Tribute/store/OM/[id number]
[2020-02-08 21:57] LABS: Troponin 5 2HR Delta 0 ABS# (0-10)
[2020-02-08 22:05] VITALS: BP 110/53; PULSE 90; RESP 17; O2SAT 97
--- NOTE | 2020-02-08 23:29 | PC.NURSE ---
cardizem drip started @ 1944. initial bolus rate 5mcg/min increasing dose to 10mcg/min. dose titrated to 5mcg/min after maintaining hr of 80-90
--- NOTE | 2020-02-09 01:34 | ECG_ITS ---
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 Measurements Intervals [place] Rate: 109 P: 71 MO: 104 QRS: 86 QRSD: 88 T: 65 QT: 350 QTc: 473 Interpretive Statements SINUS TACHYCARDIA WITH SHORT MO INTERVAL POSSIBLE RIGHT VENTRICULAR CONDUCTION DELAY [RSR (QR) IN V1/V2] MODERATE ST DEPRESSION [0.05+ mV ST DEPRESSION] Compared to ECG 02/08/2020 18:35:18 ST (T wave) deviation now present T-wave abnormality no longer present Electronically Signed On 02-09-2020 18:59:53 CDT by Lashanda Choudhary M.D. [id number] f
[2020-02-09 01:51] LABS: Troponin 5 6HR Delta 0 ng/L (0-12)
[2020-02-09] MEDS: sodium chloride 0.9% 1,000 ML 150 ML IV (01:52)
--- NOTE | 2020-02-09 05:33 | PC.NURSE ---
pt becoming tachycardic with rate to 140s with same symptoms of SOB with chest pressure. Dr notified. vo obtained for 15mg cardizem with fluid bolus. Pt hr decreased after cardizem IVP, symptoms improved
[2020-02-09] MEDS: sodium chloride 0.9% 1,000 ML 999 ML IV (05:41)
[2020-02-09 07:00] VITALS: BP 100/55; PULSE 86; RESP 14; O2SAT 98
--- NOTE | 2020-02-09 07:15 | PC.NURSE ---
during pt rounding, pt reports CP 10/[address] notified. states possible side effect of cardizem drip, will attempt to wean pt off drip and convert to PO meds for rate control. info passed onto receiving RN
--- NOTE | 2020-02-09 07:25 | PC.NURSE ---
Received report assumed care, fluids infusing in 20g left ac and Cardizem 5 mg/hr. Resting in bed, at bedside. Dr Small with be provider for the length of stay until transfer to [place]. Alert and oriented.
[2020-02-09] MEDS: metoprolol tartrate 25 mg Tablet PO (07:48)
[2020-02-09 07:51] VITALS: BP 100/55; PULSE 79; RESP 16; O2SAT 97
--- NOTE | 2020-02-09 07:52 | PC.NURSE ---
Cardizem 5 mg drip stopped and Lopressor 25 mg given po. Alert and oriented. at bedside.
[2020-02-09 08:01] VITALS: BP 101/50; PULSE 86; RESP 14; O2SAT 99
--- NOTE | 2020-02-09 08:49 | PC.NURSE ---
Breakfast tray served . No acute distress. Continue to monitor and keep updated
--- NOTE | 2020-02-09 09:34 | PC.NURSE ---
Report called to Pam KENDRICK at [facility] in [place]
[2020-02-09 09:48] VITALS: BP 91/48; PULSE 72; RESP 14; O2SAT 98
[2020-02-09 10:21] VITALS: BP 97/49; PULSE 78; RESP 18; TEMP 36.4; O2SAT 98
== END 2020-02-09 10:25 | disposition short-term general hospital (02) ==
PROVIDERS: Nurse Practitioner Family; Emergency Provider Family Medicine; PCP Nurse Practitioner Family
DX: I47.1 Supraventricular tachycardia (principal)
CPT/HCPCS: 12345; 36415; 71045; 71275; 80053; 81003; 83880; 84484; 85025; 85378; 93005; 96365; 96375; 96376; 99284; 99285; J0153; J2405; J3490; J7030; Q9967

== ENCOUNTER 2021-09-20 06:00 | Outpatient (RCR) | payer OTHER, SELFPAY | END 2021-09-22 23:59 | disposition home or self-care (01) | LOC: MPT 06:00 | PROVIDERS: PCP Nurse Practitioner Family; Referring Provider Nurse Practitioner Family; Visit Provider Nurse Practitioner Family | DX: N81.89 Other female genital prolapse (principal) | CPT/HCPCS: 97162 ==

== ENCOUNTER 2021-09-23 | Outpatient (RCR) | payer OTHER, SELFPAY | END 2021-10-22 23:59 | disposition home or self-care (01) | LOC: MPT | PROVIDERS: PCP Nurse Practitioner Family; Referring Provider Nurse Practitioner Family; Visit Provider Nurse Practitioner Family | DX: N81.89 Other female genital prolapse (principal) | CPT/HCPCS: 97110; 97530 ==

== ENCOUNTER 2021-10-23 06:00 | Outpatient (RCR) | payer OTHER, SELFPAY | END 2021-11-22 23:59 | disposition home or self-care (01) | LOC: MPT 06:00 | PROVIDERS: PCP Nurse Practitioner Family; Referring Provider Nurse Practitioner Family; Visit Provider Nurse Practitioner Family | DX: N81.89 Other female genital prolapse (principal) | CPT/HCPCS: 97110; 97530 ==

== ENCOUNTER 2023-05-17 15:09 | Inpatient (IN) | payer OTHER, BC, MEDICAID, SELFPAY ==
[2023-05-17] VITALS (46 sets, daily range): BP systolic 115–140; BP diastolic 59–90; PULSE 125–163; RESP 13–35; TEMP 37.7–39; O2SAT 83–100; BMI 21.6; BMI 23.2
--- NOTE | 2023-05-17 15:40 | XRR_ITS ---
PROCEDURE INFORMATION: Exam: XR Chest Exam date and time: 05/17/2023 4:06 PM Age: 42 years old Clinical indication: Intercostal and right-sided; Patient HX: RT lower lat rib pain; Cough x 1 mo; Chest congestion; Fever; HX tachycardia TECHNIQUE: Imaging protocol: Radiologic exam of the chest. Views: 2 views. COMPARISON: CT angio chest PE protcl [id number] 02/08/2020 8:24 PM FINDINGS: Lungs: Shaggy infiltrate is seen in the left base. Pleural spaces: Unremarkable. No pleural effusion. No pneumothorax. Heart/Mediastinum: Unremarkable. No cardiomegaly. Bones/joints: Unremarkable. XR/XR chest 2V* [id number] IMPRESSION: Shaggy infiltrate is seen in the left base. Otherwise unremarkable chest x-ray.
[2023-05-17] MEDS: ketorolac 30 mg/mL INJ IVP (15:45)
[2023-05-17] MEDS: sodium chloride 0.9% 1,000 ML 999 ML IV ×2 (15:50→19:37)
[2023-05-17 15:57] LABS: Basophils # 0.1 10^3/uL (0.0-0.1); Basophils % 0.3 %; Eosinophils # 0.1 10^3/uL (0.0-0.8); Eosinophils % 0.3 %; Hematocrit 35.6 % (36-47); Lymphocytes # 1.1 10^3/uL (0.8-4.8); Lymphocytes % 7.6 %; Mean Corpuscular HGB Conc 32.6 g/dL (30-55); Mean Corpuscular Hemoglobin 27.4 pg (27-33); Mean Corpuscular Volume 84.2 fl (85-98); Monocytes # 1.1 10^3/uL (0.2-0.9); Monocytes % 7.9 %; Neutrophils # 11.93 10^3/uL (1.8-7.7); Neutrophils % 83.5 %; Nucleated Red Blood Cells % 0 %; Platelet Count 513 10^3/cmm (157-399); Red Blood Count 4.23 10^6/uL (3.85-5.65); Red Cell Distribution Width 14.9 % (12.1-15.1)
[2023-05-17 16:07] LABS: Alanine Aminotransferase 50 U/L (0-33); Albumin Level 4.2 g/dL (3.5-5.2); Alkaline Phosphatase 226 U/L (35-105); Anion Gap 16.3 (5-19); Aspartate Amino Transferase 50 U/L (0-32); Blood Urea Nitrogen 5 mg/dL (6-20); Calcium 9.4 mg/dL (8.5-10.5); Carbon Dioxide 25 mmol/L (22-29); Chloride 101 mmol/L (98-107); Globulin 4.3 g/dL (1.3-4.6); Glucose 121 mg/dL (65-115); Osmolality Calculated 287 mOsm/kg (285-295); Potassium 3.3 mmol/L (3.5-5.1); Sodium 139 mmol/L (136-145); Total Bilirubin 0.7 mg/dL (0.15-1.2); Total Protein 8.5 g/dL (6.6-8.7)
--- NOTE | 2023-05-17 17:09 | CTR_ITS ---
PROCEDURE INFORMATION: Exam: CTA Chest With Contrast Exam date and time: 05/17/2023 5:50 PM Age: 42 years old Clinical indication: Cough and tachypnea; Additional info: Cough, tachycardia, cp TECHNIQUE: Imaging protocol: Computed tomographic angiography of the chest with contrast. Exam focused on the arteries. 3D rendering (Not supervised by radiologist): MIP and/or 3D reconstructed images were created by the technologist. Radiation optimization: All CT scans at this facility use at least one of these dose optimization techniques: automated exposure control; mA and/or kV adjustment per patient size (includes targeted exams where dose is matched to clinical indication); or iterative reconstruction. Contrast material: OMNI 350; Contrast volume: 100 ml; Contrast route: INTRAVENOUS (IV); REPORTING DATA: Count of CT and Cardiac NM exams in prior 12 months: This patient has received 0 known CTs and 0 known cardiac nuclear medicine studies in the 12 months prior to the current study. COMPARISON: CT angio chest PE protcl [id number] 02/08/2020 8:24 PM RADIATION DOSE METRICS: Total DLP (mGy-cm): 197.87 FINDINGS: Pulmonary arteries: No pulmonary embolus. Aorta: Unremarkable. No aortic aneurysm. No aortic dissection. Lungs: Patchy ground-glass and consolidative opacities throughout both lungs with a lower lobe predominance consistent with multifocal multi lobar pneumonia. Pleural spaces: Unremarkable. No pneumothorax. No pleural effusion. Heart: Unremarkable. No cardiomegaly. No pericardial effusion. Lymph nodes: Unremarkable. No enlarged lymph nodes. Bones/joints: Unremarkable. No acute fracture. Soft tissues: Unremarkable. CT/CT angio chest PE protcl [id number] IMPRESSION: 1. Patchy ground-glass and consolidative opacities throughout both lungs with a lower lobe predominance consistent with multifocal multi lobar pneumonia. 2. No pulmonary embolus.
[2023-05-17] MEDS: HYDROcodone-acetaminophen 5-325 mg Tablet 1 TAB PO (17:40)
[2023-05-17] MEDS: iohexol 350 mg/mL 500 mL Btl (per mL) IV (17:40)
[2023-05-17] MEDS: acetaminophen 325 mg Tablet 650 MG PO (19:37)
--- NOTE | 2023-05-17 20:19 | ED_ITS ---
Documented by User: Samantha Waters, MARKETING ACCOUNT EXECUTIVE-C 05/17/23 20:29 HPI - Chest Pain General: Chief Complaint: Chest Pain Stated Complaint: Cough, Hurt right side Time Seen by Provider: 05/17/23 15:17 History of Present Illness: Patient is in today for cough and right-sided rib pain. Patient reports that she has been sick for approximately a month. She states that she has had a dry nonproductive cough that seems to be getting worse over the past few days. She reports that on 04 May she was diagnosed with COVID. She does report a low-grade fever. She notes that her heart rate is a little bit elevated but states that it runs elevated at home frequently. She has a history of SVT. She denies chest pain except for chest wall pain on the right side with deep inspiration and coughing. She reports that she felt something pop when she coughed this morning that started her immediate pain. She denies any possibility of but she is breast-feeding a 3-year-old 2-3 times per day. Associated symptoms: Reports fever(s); Deny abdominal pain, nausea, palpitations or vomiting Review of Systems Const: Reports: fever(s) and chills Card: Reports: chest pain; Denies: palpitations Resp: Reports: non-productive cough and pain on inspiration GI: Denies: abdominal pain, nausea or vomiting : Denies: flank pain, difficulty voiding or urinary frequency PFSH ED PFSH: Medical History No pertinent past medical history Surgical History No pertinent past surgical history Physical Exam Const: COMMON NORMALS: patient oriented x3 and alert OTHER: Patient is anxious. Resp: AUSCULTATION: diminished lung sounds on the right in the lower lung garcia and on the left in the lower lung garcia Cardio: COMMON NORMALS: regular rhythm, S1 normal heart sound present and S2 normal heart sound present JUGULAR VENOUS DISTENTION: no JVD RATE: tachycardic RHYTHM: regular rhythm HEART SOUNDS: S1 normal heart sound present and S2 normal heart sound present Neuro: COMMON NORMALS: patient oriented x3 SENSORIUM/ORIENTATION: Yes alert Course Vital Signs: Vital signs: Vital Signs Temperature 99.4 F 05/18/23 03:52 Pulse Rate 110 H 05/18/23 03:52 Respiratory Rate 17 05/18/23 03:52 Blood Pressure 123/65 05/18/23 03:52 Pulse Oximetry 97 05/18/23 03:52 Oxygen Delivery Me thod Room Air 05/18/23 03:52 MDM - Chest Pain Medical Decision Making Consider pneumonia, PE, upper respiratory infection, tachycardia, SVT Labs reveal an elevated white blood cell count of 14.3. Chest x-ray shows shaggy infiltrate left base. Heart rate maintains 130s to 140s. Patient reports significant pain with coughing and deep breathing however she is very hesitant to take any pain medication. Temp is low-grade 99.8 and 100.3. Patient did finally agreed to take hydrocodone x 1 dose to help with pain. I discussed this case, at length with Dr. Small, and he agrees that patient sh ould have a CTA chest to rule out PE. CTA is negative for PE but shows patchy groundglass and consolidative opacities throughout both lungs with a lower lobe predominance consistent with multifocal multilobular pneumonia. I discussed this patient with Dr. Paez, hospitalist, and he agrees to admit patient for observation. Patient is very concerned about taking antibiotics given that she is breast-feeding however macrolide antibiotic is not ideal for this patient at this time given her tachycardia. I did discuss this case with Dr. Juarez and he agrees that starting patient on Levaquin at this time is appropriate. Dr. Juarez is going to put in the orders for admit for observation. I discussed this with the patient advised her of warnings with Levaquin antibiotic. She is agreeable to this plan. After retreatment with Tylenol and second liter of IV fluids patient's heart rate is down in the 120s. Lab Data 05/18/23 05:58 05/18/23 05:58 Radiology Impressions Chest X-Ray 05/17/23 15:40 IMPRESSION: Shaggy infiltrate is seen in the left base. Otherwise unremarkable chest x-ray. Chest CTA 05/17/23 17:09 IMPRESSION: 1. Patchy ground-glass and consolidative opacities throughout both lungs with a lower lobe predominance consistent with multifocal multi lobar pneumonia. 2. No pulmonary embolus. Laboratory Results WBC 14.30 10^3/uL (3.29-11.43) H 05/17/23 15:40 RBC 4.23 10^6/uL (3.85-5.65) 05/17/23 15:40 Hgb 11.60 g/dL (11.27-16.99) 05/17/23 15:40 Hct 35.6 % (36-47) L 05/17/23 15:40 MCV 84.2 fl (85-98) L 05/17/23 15:40 MCH 27.4 pg (27-33) 05/17/23 15:40 MCHC 32.6 g/dL (30-55) 05/17/23 15:40 RDW 14.9 % (12.1-15.1) 05/17/23 15:40 Plt Count 513 10^3/cmm (157-399) H 05/17/23 15:40 MPV 10.0 fL (7.4-10.4) 05/17/23 15:40 Neut % (Auto) 83.5 % 05/17/23 15:40 Lymph % (Auto) 7.6 % 05/17/23 15:40 [place] % (Auto) 7.9 % 05/17/23 15:40 Eos % (Auto) 0.3 % 05/17/23 15:40 Baso % (Auto) 0.3 % 05/17/23 15:40 Neut # (Auto) 11.93 10^3/uL (1.8-7.7) H 05/17/23 15:40 Lymph # (Auto) 1.1 10^3/uL (0.8-4.8) 05/17/23 15:40 [place] # (Auto) 1.1 10^3/uL (0.2-0.9) H 05/17/23 15:40 Eos # (Auto) 0.1 10^3/uL (0.0-0.8) 05/17/23 15:40 Baso # (Auto) 0.1 10^3/uL (0.0-0.1) 05/17/23 15:40 Nucleated RBC % (auto) 0 % 05/17/23 15:40 Nucleated RBCs # 0.0 /100WBC 05/17/23 15:40 Sodium 139 mmol/L (136-145) 05/17/23 15:40 Potassium 3.3 mmol/L (3.5-5.1) L 05/17/23 15:40 Chloride 101 mmol/L (98-107) 05/17/23 15:40 Carbon Dioxide 25 mmol/L (22-29) 05/17/23 15:40 Anion Gap 16.3 (5-19) 05/17/23 15:40 BUN 5 mg/dL (6-20) L 05/17/23 15:40 Creatinine 0.5 mg/dL (0.5-0.9) 05/17/23 15:40 GFR Calculation 134.0 mL/min (90-130) H 05/17/23 15:40 Glucose 121 mg/dL (65-115) H 05/17/23 15:40 Calculated Osmolality 287 mOsm/kg (285-295) 05/17/23 15:40 Calcium 9.4 mg/dL (8.5-10.5) 05/17/23 15:40 Total Bilirubin 0.7 mg/dL (0.15-1.2) 05/17/23 15:40 AST 50 U/L (0-32) H 05/17/23 15:40 ALT 50 U/L (0-33) H 05/17/23 15:40 Alkaline Phosphatase 226 U/L (35-105) H 05/17/23 15:40 Total Protein 8.5 g/dL (6.6-8.7) 05/17/23 15:40 Albumin 4.2 g/dL (3.5-5.2) 05/17/23 15:40 Globulin 4.3 g/dL (1.3-4.6) 05/17/23 15:40 HCG, Qual Negative (Negative) 05/17/23 15:40 Discharge Plan Discharge Patient Disposition: Admitted As Inpatient Admit Provider: Lashanda Paez Clinical Impression: Pneumonia Condition: Stable Coding Level of Care Code ED Shop Teacher for Chg Fwd Documented by User: Lex Juarez MD 05/17/23 22:28 HPI - Chest Pain General: Chief Complaint: Chest Pain Stated Complaint: Cough, Hurt right side Time Seen by Provider: 05/17/23 15:17 [facility] ED PFSH: Medical History No pertinent past medical history Surgical History No pertinent past surgical history Course Vital Signs: Vital signs: Vital Signs Temperature 99.4 F 05/18/23 03:52 Pulse Rate 110 H 05/18/23 03:52 Respiratory Rate 17 05/18/23 03:52 Blood Pressure 123/65 05/18/23 03:52 Pulse Oximetry 97 05/18/23 03:52 Oxygen Delivery Me thod Room Air 05/18/23 03:52 MDM - Chest Pain Lab Data 05/18/23 05:58 05/18/23 05:58 Radiology Impressions Chest X-Ray 05/17/23 15:40 IMPRESSION: Shaggy infiltrate is seen in the left base. Otherwise unremarkable chest x-ray. Chest CTA 05/17/23 17:09 IMPRESSION: 1. Patchy ground-glass and consolidative opacities throughout both lungs with a lower lobe predominance consistent with multifocal multi lobar pneumonia. 2. No pulmonary embolus. Laboratory Results WBC 14.30 10^3/uL (3.29-11.43) H 05/17/23 15:40 RBC 4.23 10^6/uL (3.85-5.65) 05/17/23 15:40 Hgb 11.60 g/dL (11.27-16.99) 05/17/23 15:40 Hct 35.6 % (36-47) L 05/17/23 15:40 MCV 84.2 fl (85-98) L 05/17/23 15:40 MCH 27.4 pg (27-33) 05/17/23 15:40 MCHC 32.6 g/dL (30-55) 05/17/23 15:40 RDW 14.9 % (12.1-15.1) 05/17/23 15:40 Plt Count 513 10^3/cmm (157-399) H 05/17/23 15:40 MPV 10.0 fL (7.4-10.4) 05/17/23 15:40 Neut % (Auto) 83.5 % 05/17/23 15:40 Lymph % (Auto) 7.6 % 05/17/23 15:40 [place] % (Auto) 7.9 % 05/17/23 15:40 Eos % (Auto) 0.3 % 05/17/23 15:40 Baso % (Auto) 0.3 % 05/17/23 15:40 Neut # (Auto) 11.93 10^3/uL (1.8-7.7) H 05/17/23 15:40 Lymph # (Auto) 1.1 10^3/uL (0.8-4.8) 05/17/23 15:40 [place] # (Auto) 1.1 10^3/uL (0.2-0.9) H 05/17/23 15:40 Eos # (Auto) 0.1 10^3/uL (0.0-0.8) 05/17/23 15:40 Baso # (Auto) 0.1 10^3/uL (0.0-0.1) 05/17/23 15:40 Nucleated RBC % (auto) 0 % 05/17/23 15:40 Nucleated RBCs # 0.0 /100WBC 05/17/23 15:40 Sodium 139 mmol/L (136-145) 05/17/23 15:40 Potassium 3.3 mmol/L (3.5-5.1) L 05/17/23 15:40 Chloride 101 mmol/L (98-107) 05/17/23 15:40 Carbon Dioxide 25 mmol/L (22-29) 05/17/23 15:40 Anion Gap 16.3 (5-19) 05/17/23 15:40 BUN 5 mg/dL (6-20) L 05/17/23 15:40 Creatinine 0.5 mg/dL (0.5-0.9) 05/17/23 15:40 GFR Calculation 134.0 mL/min (90-130) H 05/17/23 15:40 Glucose 121 mg/dL (65-115) H 05/17/23 15:40 Calculated Osmolality 287 mOsm/kg (285-295) 05/17/23 15:40 Calcium 9.4 mg/dL (8.5-10.5) 05/17/23 15:40 Total Bilirubin 0.7 mg/dL (0.15-1.2) 05/17/23 15:40 AST 50 U/L (0-32) H 05/17/23 15:40 ALT 50 U/L (0-33) H 05/17/23 15:40 Alkaline Phosphatase 226 U/L (35-105) H 05/17/23 15:40 Total Protein 8.5 g/dL (6.6-8.7) 05/17/23 15:40 Albumin 4.2 g/dL (3.5-5.2) 05/17/23 15:40 Globulin 4.3 g/dL (1.3-4.6) 05/17/23 15:40 HCG, Qual Negative (Negative) 05/17/23 15:40 All radiology interpretation(s) finalized by discharge Discharge Plan Discharge Patient Disposition: Admitted As Inpatient Admit Provider: Lashanda Paez Clinical Impression: Pneumonia Condition: Stable Coding Level of Care Code ED Shop Teacher for Chg Fwd Documented by User: Max Small DO 05/18/23 06:51 HPI - Chest Pain General: Chief Complaint: Chest Pain Stated Complaint: Cough, Hurt right side Time Seen by Provider: 05/17/23 15:17 [facility] ED PFSH: Medical History No pertinent past medical history Surgical History No pertinent past surgical history Course Vital Signs: Vital signs: Vital Signs Temperature 99.4 F 05/18/23 03:52 Pulse Rate 110 H 05/18/23 03:52 Respiratory Rate 17 05/18/23 03:52 Blood Pressure 123/65 05/18/23 03:52 Pulse Oximetry 97 05/18/23 03:52 Oxygen Delivery Me thod Room Air 05/18/23 03:52 MDM - Chest Pain Medical Decision Making Consider pneumonia, PE, upper respiratory infection, tachycardia, SVT Labs reveal an elevated white blood cell count of 14.3. Chest x-ray shows shaggy infiltrate left base. Heart rate maintains 130s to 140s. Patient rep orts significant pain with coughing and deep breathing however she is very hesitant to take any pain medication. Temp is low-grade 99.8 and 100.3. Patient did finally agreed to take hydrocodone x 1 dose to help with pain. I discussed this case, at length with Dr. Small, and he agrees that patient should have a CTA chest to rule out PE. CTA is negative for PE but shows patchy groundglass and consolidative opacities throughout both lungs with a lower lobe predominance consistent with multifocal multilobular pneumonia. I discussed this patient with Dr. Paez, hospitalist, and he agrees to admit patient for observation. Patient is very concerned about taking antibiotics given that she is breast-feeding however macrolide antibiotic is not ideal for this patient at this time given her tachycardia. I did discuss this case with Dr. Juarez and he agrees that starting patient on Levaquin at this time is appropriate. Dr. Juarez is going to put in the orders for admit for observation. I discussed this with the patient advised her of warnings with Levaquin antibiotic. She is agreeable to this plan. After retreatment with Tylenol and second liter of IV fluids patient's heart rate is down in the 120s. Chart reviewed and patient discussed with midlevel. Agree with assessment and plan. Lab Data 05/18/23 05:58 05/18/23 05:58 Radiology Impressions Chest X-Ray 05/17/23 15:40 IMPRESSION: Shaggy infiltrate is seen in the left base. Otherwise unremarkable chest x-ray. Chest CTA 05/17/23 17:09 IMPRESSION: 1. Patchy ground-glass and consolidative opacities throughout both lungs with a lower lobe predominance consistent with multifocal multi lobar pneumonia. 2. No pulmonary embolus. Laboratory Results WBC 14.30 10^3/uL (3.29-11.43) H 05/17/23 15:40 RBC 4.23 10^6/uL (3.85-5.65) 05/17/23 15:40 Hgb 11.60 g/dL (11.27-16.99) 05/17/23 15:40 Hct 35.6 % (36-47) L 05/17/23 15:40 MCV 84.2 fl (85-98) L 05/17/23 15:40 MCH 27.4 pg (27-33) 05/17/23 15:40 MCHC 32.6 g/dL (30-55) 05/17/23 15:40 RDW 14.9 % (12.1-15.1) 05/17/23 15:40 Plt Count 513 10^3/cmm (157-399) H 05/17/23 15:40 MPV 10.0 fL (7.4-10.4) 05/17/23 15:40 Neut % (Auto) 83.5 % 05/17/23 15:40 Lymph % (Auto) 7.6 % 05/17/23 15:40 [place] % (Auto) 7.9 % 05/17/23 15:40 Eos % (Auto) 0.3 % 05/17/23 15:40 Baso % (Auto) 0.3 % 05/17/23 15:40 Neut # (Auto) 11.93 10^3/uL (1.8-7.7) H 05/17/23 15:40 Lymph # (Auto) 1.1 10^3/uL (0.8-4.8) 05/17/23 15:40 [place] # (Auto) 1.1 10^3/uL (0.2-0.9) H 05/17/23 15:40 Eos # (Auto) 0.1 10^3/uL (0.0-0.8) 05/17/23 15:40 Baso # (Auto) 0.1 10^3/uL (0.0-0.1) 05/17/23 15:40 Nucleated RBC % (auto) 0 % 05/17/23 15:40 Nucleated RBCs # 0.0 /100WBC 05/17/23 15:40 Sodium 139 mmol/L (136-145) 05/17/23 15:40 Potassium 3.3 mmol/L (3.5-5.1) L 05/17/23 15:40 Chloride 101 mmol/L (98-107) 05/17/23 15:40 Carbon Dioxide 25 mmol/L (22-29) 05/17/23 15:40 Anion Gap 16.3 (5-19) 05/17/23 15:40 BUN 5 mg/dL (6-20) L 05/17/23 15:40 Creatinine 0.5 mg/dL (0.5-0.9) 05/17/23 15:40 GFR Calculation 134.0 mL/min (90-130) H 05/17/23 15:40 Glucose 121 mg/dL (65-115) H 05/17/23 15:40 Calculated Osmolality 287 mOsm/kg (285-295) 05/17/23 15:40 Calcium 9.4 mg/dL (8.5-10.5) 05/17/23 15:40 Total Bilirubin 0.7 mg/dL (0.15-1.2) 05/17/23 15:40 AST 50 U/L (0-32) H 05/17/23 15:40 ALT 50 U/L (0-33) H 05/17/23 15:40 Alkaline Phosphatase 226 U/L (35-105) H 05/17/23 15:40 Total Protein 8.5 g/dL (6.6-8.7) 05/17/23 15:40 Albumin 4.2 g/dL (3.5-5.2) 05/17/23 15:40 Globulin 4.3 g/dL (1.3-4.6) 05/17/23 15:40 HCG, Qual Negative (Negative) 05/17/23 15:40 Discharge Plan Discharge Patient Disposition: Admitted As Inpatient Admit Provider: Lashanda Paez Clinical Impression: Pneumonia Condition: Stable Coding Level of Care Code ED Shop Teacher for Jack Rodriguez
--- NOTE | 2023-05-17 20:27 | P.HP_ITS ---
Providers/Chief Complaint Primary Care Provider: KASSANDRA Tucker Chief Complaint: Cough, Hurt right side History of Present Illness Anel Esparza is a 42 year old female who was diagnosed with COVID-19 05/04, since then has not recovered from her cough generalized weakness and fatigue. 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 She is in the ER with fever tachypnea tachycardia leukocytosis meeting sepsis criteria high D-dimer not noted CT chest rule out CT chest showing multilobar pneumonia, potassium is 3.3, tachycardia, sinus, Patient was septic bolus in the ER received antibiotics Lactic acid is requested Patient is endorsing pleuritic pain especially in right arm excessive coughing Review of Systems Const: Reports: fever(s) and chills Eyes: Denies: change in vision ENMT: Denies: throat pain Card: Reports: chest pain Resp: Denies: dyspnea GI: Denies: abdominal pain Medications/Allergies Home Medications Medication Instructions Recorded Confirmed Last Taken Type doxylamine succinate 25 mg tablet 25 mg PO Q6H PRN Nausea 02/08/20 02/08/20 02/08/20 History (Unisom (doxylamine)) vit no.95-ferrous 1 tab PO DAILY 02/08/20 02/08/20 02/08/20 History fumarate 28 mg-folic acid 800 mcg tablet () Allergies Allergy/AdvReac Type Severity Reaction Status Date / Time cephalexin [From Keflex] Allergy ALGY-Rash Verified 05/17/23 15:22 metronidazole [From Flagyl] Allergy ALGY-Rash Verified 05/17/23 15:22 Sulfa (Sulfonamide Allergy ALGY-Rash Verified 05/17/23 15:22 Antibiotics) PFSH Acute PFSH: Medical History No pertinent past medical history Surgical History No pertinent past surgical history Vitals/I&O/Wt Last Vital Signs Temp 100.3 F H 05/17/23 19:21 Pulse 139 H 05/17/23 18:55 Resp 18 05/17/23 18:45 BP 133/66 05/17/23 18:55 Pulse Ox 96 05/17/23 18:55 O2 Del Method Room Air 05/17/23 17:45 Weight last 48 hrs Weight 62.596 kg Physical Exam Narrative: Pleasant Young female GCS 15 Febrile Tachycardia sinus in nature Pleasant cooperative Bilateral breath sounds rhonchi No sign of fluid overload GCS 15 X-rays. at the bedside S1, S2 Abdomen soft Data 05/17/23 15:40 05/17/23 15:40 A&P Assessment and plan (1) Sepsis: (2) Pneumonia: (3) Sinus tachycardia: (4) Hypokalemia: Plan Sepsis related to pneumonia COVID-19 05/04 Sepsis criteria met with fever tachypnea tachycardia leukocytosis Sinus tachycardia Check TSH, magnesium Patient received adenosine 2019 when she was for SVT We will add low-dose metoprolol Check beta-hCG Patient received septic bolus in the ER, requested lactic acid we will give her ceftriaxone and azithromycin, Patient should not breast-feed for at least next 10 to 14 days because of use of antibiotics, these antibiotics do show up in breastmilk Full code Cardiac diet Check drug screen Patient will need cardiology outpatient referral For now I will start metoprolol and IV fluids and antibiotics Replenish hypokalemia, short IN interval with sinus tachycardia Attestations Medical Necessity Statement*: More than 2 midnights anticipated Diagnoses Sepsis A41.9 Pneumonia J18.9 Sinus tachycardia R00.0 Hypokalemia E87.6
[2023-05-17 20:58] LABS: D Dimer 0.63 ug/mLFEU (0-0.59)
[2023-05-17 21:08] LABS: Procalcitonin 0.07 ng/mL (0-0.5)
--- NOTE | 2023-05-17 21:38 | PC.NURSE ---
rula was taken to floor by this RN and given to charge nurse. pt states the hospitalist told her he was going to wait on the abx until he could look at the side effects d/t pt .
[2023-05-17 22:16] LABS: HCG, Serum Qual Negative (Negative)
[2023-05-17] MEDS: sodium chloride 0.9% 1,000 ML 75 ML IV (22:49)
[2023-05-17] MEDS: ketorolac 30 mg/mL INJ 15 MG IVP (22:52)
[2023-05-17] MEDS: potassium chloride ER 20 mEq Tablet 40 MEQ PO (22:55)
[2023-05-17] MEDS: benzonatate 100 mg Capsule 200 MG PO (22:57)
[2023-05-17] MEDS: dexamethasone 4 mg Tablet 6 MG PO (22:58)
[2023-05-17] MEDS: metoprolol tartrate 25 mg Tablet 12.5 MG PO (23:00)
[2023-05-17 23:24] LABS: Thyroid Stimulating Hormone 0.41 uIU/mL (0.27-4.20)
[2023-05-18] VITALS (10 sets, daily range): BP systolic 95–123; BP diastolic 44–65; PULSE 86–110; RESP 16–19; TEMP 36.4–38.3; O2SAT 95–97; BMI 23.2
[2023-05-18] MEDS: azithromycin 250 mg Tablet 500 MG PO ×2 (00:19→08:55)
[2023-05-18 02:23] LABS: Amphetamines Screen Urine Negative (Negative); Barbiturates Screen Urine Negative (Negative); Benzodiazepines Screen Urine Negative (Negative); Cocaine Screen Urine Negative (Negative); Opiate Screen Urine Positive (Negative); PCP Screen Urine Negative (Negative); THC Screen Urine Negative (Negative)
[2023-05-18] MEDS: HYDROcodone-acetaminophen 5-325 mg Tablet 1 TAB PO ×4 (03:54→20:08)
[2023-05-18] MEDS: ALPRAZolam 0.5 mg Tablet PO (03:55)
[2023-05-18 06:15] LABS: Basophils % 0.2 %; Lymphocytes # 0.6 10^3/uL (0.8-4.8); Lymphocytes % 4.3 %; Mean Corpuscular HGB Conc 32.3 g/dL (30-55); Mean Corpuscular Hemoglobin 27.5 pg (27-33); Mean Platelet Volume 9.9 fL (7.4-10.4); Monocytes # 0.2 10^3/uL (0.2-0.9); Monocytes % 1.7 %; Neutrophils # 11.89 10^3/uL (1.8-7.7); Neutrophils % 93.3 %; Nucleated Red Blood Cells % 0 %; Platelet Count 374 10^3/cmm (157-399); Red Blood Count 3.53 10^6/uL (3.85-5.65); Red Cell Distribution Width 14.9 % (12.1-15.1); White Blood Count 12.74 10^3/uL (3.29-11.43)
[2023-05-18 06:31] LABS: Anion Gap 16.2 (5-19); Blood Urea Nitrogen 6 mg/dL (6-20); C Reactive Protein 220.7 mg/L (0.0-4.9); Calcium 8.5 mg/dL (8.5-10.5); Carbon Dioxide 20 mmol/L (22-29); Chloride 106 mmol/L (98-107); Glucose 133 mg/dL (65-115); Magnesium 1.8 mg/dL (1.7-2.3); Osmolality Calculated 286 mOsm/kg (285-295); Potassium 4.2 mmol/L (3.5-5.1); Sodium 138 mmol/L (136-145)
--- NOTE | 2023-05-18 08:52 | PC.PHAR ---
PT STATES TAKES NO MAINTENANCE MEDICATIONS. 05/18/23
[2023-05-18] MEDS: benzonatate 100 mg Capsule 200 MG PO ×3 (08:55→20:09)
[2023-05-18] MEDS: dexamethasone 4 mg Tablet 6 MG PO (08:55)
[2023-05-18] MEDS: metoprolol tartrate 25 mg Tablet 12.5 MG PO (08:55)
--- NOTE | 2023-05-18 13:08 | PM.PN ---
Subjective Subjective: Levels morning. at bedside. Patient having loose stools most likely secondary to antibiotic use. Vitals/I&O/Wt Last Vital Signs Temp 98.2 F 05/18/23 12:36 Pulse 96 05/18/23 12:36 Resp 18 05/18/23 12:36 BP 95/53 05/18/23 12:36 Pulse Ox 96 05/18/23 12:36 O2 Del Method Room Air 05/18/23 12:36 05/17/23 05/18/23 05/18/23 22:59 06:59 14:59 Intake Total 1999 1160 / 1160 Balance 1999 1160 / 1160 Weight last 48 hrs Weight 67.387 kg Weight 67.387 kg Weight 62.596 kg Physical Exam Narrative: Pleasant Young female Pleasant cooperative Bilateral breath sounds rhonchi No sign of fluid overload at the bedside S1, S2 Abdomen soft Data 05/18/23 05:58 05/18/23 05:58 A&P Assessment and plan (1) Sepsis: (2) Pneumonia: (3) Sinus tachycardia: (4) Hypokalemia: Plan #Sepsis related to pneumonia #History of SVT during #Currently breast-feeding COVID-19 05/04 Sepsis criteria met with fever tachypnea tachycardia leukocytosis Sinus tachycardia Magnesium 1.8, TSH 0.41. CRP 220 this morning. ? Check respiratory viral panel Patient received adenosine 2019 when she was for SVT Total metoprolol was added last night 12.5 twice daily. Patient blood pressure is 95/53 after morning dose today. Heart rate is 96. I had a discussion with her regarding continuing the medication versus stopping. She stated that she had SVTs at one time where she had to be converted but after that she felt like she had palpitations. She has worn Holter monitor in the past. We will set her up with cardiology referral at discharge. Beta-hCG negative. Patient received septic bolus in the ER, I counseled patient regarding IV antibiotics and showed her her CT scan chest. Patient agreeable to have IV ceftriaxone at this time. We will discharge her on oral Augmentin at discharge or Levaquin. Full code Cardiac diet Attestations Medical Necessity Statement*: Requires inpatient stay for treatment of pneumonia. Diagnoses Sepsis A41.9 Pneumonia J18.9 Sinus tachycardia R00.0 Hypokalemia E87.6
[2023-05-18] MEDS: sodium chloride 0.9% 1,000 ML 75 ML IV (14:41)
[2023-05-18 14:47] LABS: Adenovirus Not Detected (NOT DETECT); Chlamydia Pneumoniae Not Detected (NOT DETECT); Coronavirus 229E,HKU1,NL63,OC4 Not Detected (NOT DETECT); Human Metapneumovirus Not Detected (NOT DETECT); Human Rhinovirus/Enterovirus Not Detected (NOT DETECT); Influenza A Not Detected (NOT DETECT); Influenza A H1 Not Detected (NOT DETECT); Influenza A H1-2009 Not Detected (NOT DETECT); Influenza A H3 Not Detected (NOT DETECT); Influenza B Not Detected (NOT DETECT); Mycoplasma Pneumoniae Not Detected (NOT DETECT); Parainfluenza Virus Type 1 Not Detected (NOT DETECT); Parainfluenza Virus Type 2 Not Detected (NOT DETECT); Parainfluenza Virus Type 3 Not Detected (NOT DETECT); Parainfluenza Virus Type 4 Not Detected (NOT DETECT); Respiratory Syncytial Virus A Not Detected (NOT DETECT); Respiratory Syncytial Virus B Not Detected (NOT DETECT); SARS-COV-2 Not Detected (NOT DETECT)
[2023-05-18 15:15] LABS: Procalcitonin 0.07 ng/mL (0-0.5)
[2023-05-18] MEDS: cefTRIAXone 1,000 MG in sodium chloride 0.9% (plus) 50 ML 100 MG IV (16:03)
[2023-05-18] MEDS: ALPRAZolam 0.5 mg Tablet 0.25 MG PO (20:09)
--- NOTE | 2023-05-18 21:50 | USCV_ITS ---
Esparza Anel Age: 42 Gender: F : 1980 Exam Date: 05/18/2023 01:27 Ordering Phys: Lashanda Paez MD Technologist: SULMA Exam Location: [facility] – [place] Indication: SOB, COVID pneumonia, febrile 100.3F, hx SVT since of last child 2019. BP: 126 / 80 HR: 99 Rhythm: Sinus Technical Quality: MEASUREMENTS (Male / Female) Normal Values 2D ECHO LV Diastolic Diameter PLAX 4.3 cm 4.2 - 5.9 / 3.9 - 5.3 cm LV Systolic Diameter PLAX 3.0 cm IVS Diastolic Thickness 0.9 cm 0.6 - 1.0 / 0.6 - 0.9 cm IVS Systolic Thickness 1.1 cm LVPW Diastolic Thickness 0.9 cm 0.6 - 1.0 / 0.6 - 0.9 cm LVPW Systolic Thickness 1.1 cm LVOT Diameter 1.7 cm LV Ejection Fraction 2D Teich 55.9 % LV Ejection Fraction MOD 2C 59.9 % LV Ejection Fraction 2C AL 60.6 % LA Diameter 3.1 cm LA Width 4.4 cm LA Height 4.6 cm RA Width 3.9 cm RA Height 5.1 cm Aorta at Sinotubular Diameter 3.0 cm IVC Diameter 2.0 cm M-MODE Aortic Annulus Diameter 2.9 cm LA Ao Ratio MM 1.0 MV E Point Septal Separation 0.4 cm DOPPLER AV Peak Velocity 125.0 cm/s LVOT Peak Velocity 100.0 cm/s AV Area Cont Eq vti 1.7 cm squared AV Area Cont Eq pk 1.8 cm squared MV Area PHT 4.1 cm squared Mitral E to A Ratio 1.0 MV E' Velocity 53.0 cm/s Mitral E to MV E' Ratio 5.4 Mitral E to LV E' Lateral Ratio 4.5 Mitral E to LV E' Septal Ratio 6.7 TR Peak Velocity 259.0 cm/s TR Peak Gradient 26.8 mmHg TV Peak E Velocity 39.0 cm/s Right Atrial Pressure 5.0 mmHg Pulmonary Artery Systolic Pressu 31.8 mmHg PV Peak Velocity 86.0 cm/s RV Acceleration Time 0.1 s RV Ejection Time 0.3 s RV AcT/ET 0.5 FINDINGS Left Ventricle Normal left ventricular size, systolic function and wall thickness, with no regional wall motion abnormalities. Left ventricular ejection fraction is estimated at 60%. Right Ventricle Normal right ventricular size and systolic function. Right Atrium Normal right atrial size. Left Atrium Normal left atrial size. Mitral Valve Structurally normal mitral valve. Trace mitral valve regurgitation. Aortic Valve Structurally normal trileaflet aortic valve. Tricuspid Valve Structurally normal tricuspid valve. Trace tricuspid valve regurgitation. Pulmonic Valve Structurally normal pulmonic valve. Trace pulmonary valve regurgitation. Pericardium No pericardial effusion. Aorta Normal size aortic root and proximal ascending aorta. IVC Normal IVC dimension with >50% respiratory change of the inferior vena cava. CONCLUSIONS Normal left ventricular function. No LVH. LVEF is normal 60%. Normal chamber sizes. No significant valvular abnormality noted. Normal right heart and pulmonary pressures. Yana Mcdonald MD (Electronically Signed) Final Date: 18 May 2023 10:46 S
[2023-05-19] VITALS (7 sets, daily range): BP systolic 107–124; BP diastolic 49–70; PULSE 80–97; RESP 16–19; TEMP 36.4–37.3; O2SAT 91–95
[2023-05-19] MEDS: sodium chloride 0.9% 1,000 ML 125 ML IV ×3 (01:37→17:59)
[2023-05-19] MEDS: HYDROcodone-acetaminophen 5-325 mg Tablet 1 TAB PO ×5 (02:54→23:17)
[2023-05-19] MEDS: benzonatate 100 mg Capsule 200 MG PO ×4 (02:57→21:08)
[2023-05-19 06:36] LABS: Basophils % 0.2 %; Hematocrit 28.5 % (36-47); Lymphocytes # 1.7 10^3/uL (0.8-4.8); Lymphocytes % 11.1 %; Mean Corpuscular HGB Conc 31.9 g/dL (30-55); Mean Corpuscular Hemoglobin 27.2 pg (27-33); Mean Corpuscular Volume 85.3 fl (85-98); Mean Platelet Volume 9.6 fL (7.4-10.4); Monocytes % 6.9 %; Neutrophils # 12.08 10^3/uL (1.8-7.7); Neutrophils % 81.1 %; Nucleated Red Blood Cells % 0 %; Platelet Count 451 10^3/cmm (157-399); Red Blood Count 3.34 10^6/uL (3.85-5.65); Red Cell Distribution Width 15.1 % (12.1-15.1); White Blood Count 14.88 10^3/uL (3.29-11.43)
[2023-05-19 07:03] LABS: Anion Gap 14.3 (5-19); Blood Urea Nitrogen 7 mg/dL (6-20); Calcium 8.5 mg/dL (8.5-10.5); Carbon Dioxide 21 mmol/L (22-29); Chloride 109 mmol/L (98-107); Glomerular Filtration Rate 173.4 mL/min (90-130); Glucose 137 mg/dL (65-115); Osmolality Calculated 290 mOsm/kg (285-295); Potassium 4.3 mmol/L (3.5-5.1); Sodium 140 mmol/L (136-145)
[2023-05-19 08:44] LABS: C Reactive Protein 124.7 mg/L (0.0-4.9)
--- NOTE | 2023-05-19 14:01 | PM.PN ---
Subjective Subjective: feels better Vitals/I&O/Wt Last Vital Signs Temp 97.7 F 05/19/23 12:00 Pulse 97 05/19/23 12:00 Resp 18 05/19/23 12:00 BP 107/68 05/19/23 12:00 Pulse Ox 94 05/19/23 12:00 O2 Del Method Room Air 05/19/23 12:00 05/18/23 05/19/23 05/19/23 22:59 06:59 14:59 Intake Total 1126.25 / 3286.25 543.750 / 3830.000 2300 / 2300 Balance 1126.25 / 3286.25 543.750 / 3830.000 2300 / 2300 Weight last 48 hrs Weight 70.449 kg Weight 67.387 kg Weight 67.387 kg Weight 62.596 kg Physical Exam Narrative: Pleasant Young female Pleasant cooperative Bilateral breath sounds rhonchi No sign of fluid overload at the bedside S1, S2 Abdomen soft Data 05/19/23 06:10 05/19/23 06:10 A&P Assessment and plan (1) Sepsis: (2) Pneumonia: (3) Sinus tachycardia: (4) Hypokalemia: Plan #Sepsis related to pneumonia #History of SVT during #Currently breast-feeding COVID-19 05/04 Sepsis criteria met with fever tachypnea tachycardia leukocytosis Sinus tachycardia Magnesium 1.8, TSH 0.41. CRP 124 this morning. ? Check respiratory viral panel Patient received adenosine 2019 when she was for SVT We will set her up with cardiology referral at discharge. Beta-hCG negative. Patient received septic bolus in the ER, I counseled patient regarding IV antibiotics and showed her her CT scan chest. Patient agreeable to have IV ceftriaxone at this time. We will discharge her on oral Augmentin at discharge or Levaquin. Full code Cardiac diet Attestations Medical Necessity Statement*: Requires inpatient stay for treatment of pneumonia. Diagnoses Sepsis A41.9 Pneumonia J18.9 Sinus tachycardia R00.0 Hypokalemia E87.6
[2023-05-19] MEDS: cefTRIAXone 1,000 MG in sodium chloride 0.9% (plus) 50 ML 100 MG IV (14:46)
[2023-05-19] MEDS: azithromycin 500 MG in sodium chloride 0.9% 250 ML 250 MG IV (15:31)
[2023-05-19] MEDS: ketorolac 30 mg/mL INJ 15 MG IVP (21:05)
[2023-05-19] MEDS: ALPRAZolam 0.5 mg Tablet 0.25 MG PO (23:18)
[2023-05-20] VITALS: BP 121/72; PULSE 89; RESP 17; TEMP 36.5; O2SAT 95
[2023-05-20] MEDS: sodium chloride 0.9% 1,000 ML 125 ML IV ×2 (01:55→09:27)
[2023-05-20 04:00] VITALS: BP 109/57; PULSE 78; RESP 16; TEMP 36.9; O2SAT 94
[2023-05-20] MEDS: benzonatate 100 mg Capsule 200 MG PO ×2 (04:40→12:14)
[2023-05-20] MEDS: ketorolac 30 mg/mL INJ 15 MG IVP (04:40)
[2023-05-20 05:42] LABS: Basophils % 0.1 %; Eosinophils % 0.1 %; Hematocrit 27.7 % (36-47); Lymphocytes # 2.8 10^3/uL (0.8-4.8); Lymphocytes % 33.6 %; Mean Corpuscular HGB Conc 32.5 g/dL (30-55); Mean Corpuscular Hemoglobin 27.6 pg (27-33); Mean Platelet Volume 9.5 fL (7.4-10.4); Monocytes # 0.8 10^3/uL (0.2-0.9); Monocytes % 9.1 %; Neutrophils # 4.78 10^3/uL (1.8-7.7); Neutrophils % 56.6 %; Nucleated Red Blood Cells % 0 %; Platelet Count 458 10^3/cmm (157-399); Red Blood Count 3.26 10^6/uL (3.85-5.65); White Blood Count 8.45 10^3/uL (3.29-11.43)
[2023-05-20 06:04] LABS: Anion Gap 11.1 (5-19); Blood Urea Nitrogen 5 mg/dL (6-20); Calcium 7.7 mg/dL (8.5-10.5); Carbon Dioxide 24 mmol/L (22-29); Chloride 107 mmol/L (98-107); Creatinine Clr Calc Pharmacy 149.2482; Glucose 118 mg/dL (65-115); Osmolality Calculated 284 mOsm/kg (285-295); Potassium 4.1 mmol/L (3.5-5.1); Sodium 138 mmol/L (136-145)
[2023-05-20 06:16] LABS: C Reactive Protein 54.2 mg/L (0.0-4.9)
[2023-05-20 07:32] VITALS: BP 111/62; PULSE 82; RESP 18; TEMP 36.8; O2SAT 93
[2023-05-20 08:00] VITALS: PULSE 90; RESP 16; O2SAT 96
[2023-05-20] MEDS: HYDROcodone-acetaminophen 5-325 mg Tablet 1 TAB PO ×2 (09:27→14:09)
[2023-05-20 11:46] VITALS: BP 106/61; PULSE 76; RESP 17; TEMP 36.7; O2SAT 95
--- NOTE | 2023-05-20 13:13 | P.DS_ITS ---
Discharge Providers Date of Admission: 05/17/23 20:34 Date of Discharge: May 20, 2023 Attending Provider at Admission: Lashanda Paez MD Attending Provider at Discharge: Denise Birmingham MD Primary Care Provider: KASSANDRA Tucker Diagnoses at Discharge Discharge Diagnosis (1) Sepsis: Status: Acute (2) Pneumonia: Status: Acute (3) Sinus tachycardia: Status: Acute (4) Hypokalemia: Status: Acute Reason for Visit Reason for Visit: Cough, Hurt right side Hospital Course Hospital Course Patient admitted for generalized weakness cough and fatigue. She was diagnosed with COVID-19 on May 04 and since then has not recovered. She has a history of SVT required conversion with adenosine during . She has not really been experiencing any new symptoms however says at times she does experience palpitations. She was admitted for sepsis secondary to multilobar pneumonia. Placed on ceftriaxone and azithromycin during hospital stay. CRP has trended down. Patient is feeling better. We will discharge her home in stable condition today. She is to complete Augmentin for another 10 days to equal total 14 days. She will be given chest x-ray to do in 6 weeks. Follow-up appointment given for pulmonology. I have checked with [employer] as well. I have assured her ceftriaxone azithromycin and Augmentin are safe in Breast-feeding mothers. She also received Levaquin x1 dose. Half-life is 6 to 8 hours. Traces of that are seen in breastmilk however her last dose was greater than 48 hours ago. Physical Exam Narrative: Pleasant Young female Pleasant cooperative Bilateral breath sounds rhonchi, mainly clear to auscultation No sign of fluid overload at the bedside S1, S2 Abdomen soft Discharge Data Studies Completed and Pending Completed Studies During Hospitalization Category Date Time Status CTA chest [CT angio chest PE protcl [id number]] Stat Cat Scan 05/17/23 17:09 Completed XR chest 2V* [id number] Stat Exams 05/17/23 15:40 Completed CV. echo complete* [id number] Routine Ultrasound 05/18/23 21:50 Completed Pending at discharge Category Date Time Status Bacterial Antigen Routine Lab 05/17/23 23:53 Uncollected Basic Metabolic Panel AM LABS Lab 05/20/23 04:00 Ordered CRP [C Reactive Protein] AM LABS Lab 05/20/23 04:00 Ordered Complete Blood Count w/Auto AM LABS Lab 05/20/23 04:00 Ordered Sputum Culture and Gram Stain Routine Lab 05/17/23 23:53 Uncollected Radiology Impressions Chest X-Ray 05/17/23 15:40 IMPRESSION: Shaggy infiltrate is seen in the left base. Otherwise unremarkable chest x-ray. Chest CTA 05/17/23 17:09 IMPRESSION: 1. Patchy ground-glass and consolidative opacities throughout both lungs with a lower lobe predominance consistent with multifocal multi lobar pneumonia. 2. No pulmonary embolus. Laboratory Results WBC 14.88 10^3/uL (3.29-11.43) H 05/19/23 06:10 RBC 3.34 10^6/uL (3.85-5.65) L 05/19/23 06:10 Hgb 9.10 g/dL (11.27-16.99) L 05/19/23 06:10 Hct 28.5 % (36-47) L 05/19/23 06:10 MCV 85.3 fl (85-98) 05/19/23 06:10 MCH 27.2 pg (27-33) 05/19/23 06:10 MCHC 31.9 g/dL (30-55) 05/19/23 06:10 RDW 15.1 % (12.1-15.1) 05/19/23 06:10 Plt Count 451 10^3/cmm (157-399) H 05/19/23 06:10 MPV 9.6 fL (7.4-10.4) 05/19/23 06:10 Neut % (Auto) 81.1 % 05/19/23 06:10 Lymph % (Auto) 11.1 % 05/19/23 06:10 Mercer % (Auto) 6.9 % 05/19/23 06:10 Eos % (Auto) 0.0 % 05/19/23 06:10 Baso % (Auto) 0.2 % 05/19/23 06:10 Neut # (Auto) 12.08 10^3/uL (1.8-7.7) H 05/19/23 06:10 Lymph # (Auto) 1.7 10^3/uL (0.8-4.8) 05/19/23 06:10 Mercer # (Auto) 1.0 10^3/uL (0.2-0.9) H 05/19/23 06:10 Eos # (Auto) 0.0 10^3/uL (0.0-0.8) 05/19/23 06:10 Baso # (Auto) 0.0 10^3/uL (0.0-0.1) 05/19/23 06:10 Nucleated RBC % (auto) 0 % 05/19/23 06:10 Nucleated RBCs # 0.0 /100WBC 05/19/23 06:10 D-Dimer 0.63 ug/mLFEU (0-0.59) H 05/17/23 20:40 Sodium 140 mmol/L (136-145) 05/19/23 06:10 Potassium 4.3 mmol/L (3.5-5.1) 05/19/23 06:10 Chloride 109 mmol/L (98-107) H 05/19/23 06:10 Carbon Dioxide 21 mmol/L (22-29) L 05/19/23 06:10 Anion Gap 14.3 (5-19) 05/19/23 06:10 BUN 7 mg/dL (6-20) 05/19/23 06:10 Creatinine 0.4 mg/dL (0.5-0.9) L 05/19/23 06:10 GFR Calculation 173.4 mL/min (90-130) H 05/19/23 06:10 Glucose 137 mg/dL (65-115) H 05/19/23 06:10 Calculated Osmolality 290 mOsm/kg (285-295) 05/19/23 06:10 Lactic Acid 1.0 mmol/L (0.5-2.2) 05/17/23 22:10 Calcium 8.5 mg/dL (8.5-10.5) 05/19/23 06:10 Magnesium 2.0 mg/dL (1.7-2.3) 05/19/23 06:10 Total Bilirubin 0.7 mg/dL (0.15-1.2) 05/17/23 15:40 AST 50 U/L (0-32) H 05/17/23 15:40 ALT 50 U/L (0-33) H 05/17/23 15:40 Alkaline Phosphatase 226 U/L (35-105) H 05/17/23 15:40 C-Reactive Protein 124.7 mg/L (0.0-4.9) H 05/19/23 06:10 Total Protein 8.5 g/dL (6.6-8.7) 05/17/23 15:40 Albumin 4.2 g/dL (3.5-5.2) 05/17/23 15:40 Globulin 4.3 g/dL (1.3-4.6) 05/17/23 15:40 Procalcitonin 0.07 ng/mL (0-0.5) 05/18/23 05:58 TSH 0.41 uIU/mL (0.27-4.20) 05/17/23 22:10 HCG, Qual Negative (Negative) 05/17/23 15:40 Nasal Influ A H1 2009 PCR Not detected (NOT DETECT) 05/18/23 12:45 Urine Opiates Screen Positive ng/mL (Negative) H 05/18/23 01:02 Ur Barbiturates Screen Negative ng/mL (Negative) 05/18/23 01:02 Ur Phencyclidine Scrn Negative ng/mL (Negative) 05/18/23 01:02 Ur Amphetamines Screen Negative ng/mL (Negative) 05/18/23 01:02 U Benzodiazepines Scrn Negative ng/mL (Negative) 05/18/23 01:02 Urine Cocaine Screen Negative ng/mL (Negative) 05/18/23 01:02 U Marijuana (THC) Screen Negative ng/mL (Negative) 05/18/23 01:02 Adenovirus (PCR) Not detected (NOT DETECT) 05/18/23 12:45 C. pneumoniae DNA (PCR) Not detected (NOT DETECT) 05/18/23 12:45 Coronavirus 229E (PCR) Not detected (NOT DETECT) 05/18/23 12:45 Human Metapneumovir PCR Not detected (NOT DETECT) 05/18/23 12:45 Influenza A (H1) PCR Not detected (NOT DETECT) 05/18/23 12:45 Influenza A (H3) PCR Not detected (NOT DETECT) 05/18/23 12:45 Influenza Type A (PCR) Not detected (NOT DETECT) 05/18/23 12:45 Influenza Type B (PCR) Not detected (NOT DETECT) 05/18/23 12:45 M. pneumoniae (PCR) Not detected (NOT DETECT) 05/18/23 12:45 Parainfluenza 1 (PCR) Not detected (NOT DETECT) 05/18/23 12:45 Parainfluenza 2 (PCR) Not detected (NOT DETECT) 05/18/23 12:45 Parainfluenza 3 (PCR) Not detected (NOT DETECT) 05/18/23 12:45 Parainfluenza 4 (PCR) Not detected (NOT DETECT) 05/18/23 12:45 RSV Type A (PCR) Not detected (NOT DETECT) 05/18/23 12:45 RSV Type B (PCR) Not detected (NOT DETECT) 05/18/23 12:45 Entero/Rhino (PCR) Not detected (NOT DETECT) 05/18/23 12:45 SARS-CoV-2 (PCR) Not detected (NOT DETECT) 05/18/23 12:45 Vitals Last Vital Signs Temp 99.1 F 05/19/23 20:00 Pulse 93 05/19/23 20:00 Resp 18 05/19/23 20:00 BP 117/70 05/19/23 20:00 Pulse Ox 95 05/19/23 20:00 O2 Del Method Room Air 05/19/23 20:00 Discharge Plan Discharge Patient Disposition: Home Condition: Stable Prescriptions: New amoxicillin-pot clavulanate 875-125 mg tablet 1 tab PO BID 10 Days Qty: 20 0RF Continued No Known Home Medications Discharge Orders: Discharge Order (Routine); Ordered 05/20/23 Ordered By: Denise Birmingham Other Ambulatory Orders: XR chest 2V insp/exp [id number] (Routine) Timeframe: 6 Weeks Facility: [facility] - Location: Radiology [facility] Ordered By: Denise Birmingham Referrals: Puneet Osuna MD [Physician] - 2 weeks Jordan Beltran M.D [Physician] - 2 weeks Courtney Hope FNP [Primary Care Provider] - 4-7 days Discharge Diet: Regular Discharge Activity: Resume usual activity Patient Instructions: Opioid Safety Discharge Attestations Time Spent in Discharge Care*: greater than 30 min Quality Metrics Clinical Quality Measures [ No reported AMI, CVA or VTE this stay] Coding Level of Care Code Acute Code for Chg Fwd Diagnoses Sepsis A41.9 Pneumonia J18.9 Sinus tachycardia R00.0 Hypokalemia E87.6
[2023-05-20] MEDS: cefTRIAXone 1,000 MG in sodium chloride 0.9% (plus) 50 ML 100 MG IV (14:09)
[2023-05-20] MEDS: azithromycin 500 MG in sodium chloride 0.9% 250 ML 250 MG IV (14:09)
[2023-05-20 16:33] VITALS: BP 110/65; PULSE 104; RESP 18; TEMP 36.6; O2SAT 95
== END 2023-05-20 16:57 | disposition home or self-care (01) | DRG 871 ==
LOC: ER 20:27 → MEDSURG 22:28
PROVIDERS: Admitting Provider Internal Medicine; Emergency Provider Nurse Practitioner Family; PCP Nurse Practitioner Family; Visit Provider Internal Medicine
DX: A41.9 Sepsis, unspecified organism (principal); J18.9 Pneumonia, unspecified organism; E87.6 Hypokalemia; Z86.16 Personal history of COVID-19
CPT/HCPCS: 36415; 71046; 71275; 80048; 80053; 80306; 83605; 83735; 84145; 84443; 84703; 85025; 85378; 86140; 87486; 87581; 87633; 93306; 94640; 96365; 96375; 99285; J0456; J0696; J1885; J7030; J7050; J8540; Q0144; Q9967